=== PATIENT | male | born 1940 | race Caucasian/White ===

== ENCOUNTER → 2020-07-29 13:54 | Outpatient (CLI) | payer MEDICARE, OTHER, SELFPAY | PROVIDERS: Visit Provider Physician Assistant | DX: J02.9 Acute pharyngitis, unspecified (principal) | CPT/HCPCS: 87070 ==

== ENCOUNTER 2020-08-12 09:09 | Emergency (ER) | payer MEDICARE, OTHER, SELFPAY ==
[2020-08-12 09:20] VITALS: BP 201/84; PULSE 64; RESP 16; TEMP 36.5; O2SAT 99
--- NOTE | 2020-08-12 09:33 | DI.RAD.S_ITS ---
PROCEDURE: XR CHEST 1V INDICATIONS: chest pain TECHNIQUE: One view of the chest was acquired. COMPARISON: [facility] [place], CR, XR SHOULDER 2+ VIEWS LEFT, 07/30/2018, 9:23. FINDINGS: Surgical changes and devices: None. Lungs and pleura: On this semiupright portable chest examination, no large pneumothorax or large pleural effusions are seen. No focal infiltrates are seen. The lungs are hyperexpanded. Mediastinum: The cardiac contours are within normal limits. The aorta demonstrates calcification and tortuosity. Bones and chest wall: No suspicious bony lesions. Age-appropriate bony degenerative changes are seen. Overlying soft tissues appear unremarkable. IMPRESSION: Hyperexpanded lungs, without an acute cardiopulmonary process identified. Dictated by: Juan Carlos Lambert M.D. on 08/12/2020 at 8:59 Approved by: Juan Carlos Lambert M.D. on 08/12/2020 at 9:00
--- NOTE | 2020-08-12 09:41 | ED.CHESTPAIN ---
HPI - Chest Pain General Chief Complaint: Chest Pain Stated Complaint: reff from walk in/ongoing sharp pains breathing Time Seen by Provider: 08/12/20 09:14 Source: patient Mode of arrival: Ambulatory Limitations: no limitations History of Present Illness HPI narrative: Patient is a 79-year-old male who presents with chest discomfort ongoing for the last 3-4 days. It hurts whenever he breathes this. Last night he was sleeping on his right side in order to help with the pain. He does have pain and his left back but seems to be in the center as well. He denies any radiation of pain. It seems to be associated more with movement. He has sore throat recently which he says was quite severe he lost 10 lb from it thought he had COVID-19 but he tested negative. That seems to be improving. He can not remember what he was doing when it started. He took 650 mg of aspirin prior to arrival which he says helps. This was the 1st time he has taken anything for pain. He has not seen a doctor in about 6 years and currently takes no medication, but follows a plant based diet. MD complaint: chest pain Onset (ago): day(s) (3) Duration: intermittent Relieving factors: nothing Exacerbating factors: movement Related Data Allergies Allergy/AdvReac Type Severity Reaction Status Date / Time No Known Drug Allergies Allergy Unverified 07/29/20 09:00 Review of Systems Review of Systems Narrative: GENERAL: Denies chills, fatigue, malaise, fever, sweats, travel HEENT: Denies sinus pain, ear pain, sore throat, difficulty swallowing, neck pain RESPIRATORY: Denies dyspnea, cough, wheezing, hemoptysis, sputum. CARDIOVASCULAR: See HPI GASTROINTESTINAL: Denies nausea, vomiting, abdominal pain, diarrhea, constipation, melena. : Denies dysuria, frequency, incontinence, hematuria, urinary retention, flank pain. MUSCULOSKELETAL: Denies weakness, joint pain, or bony pain SKIN: No rash, no erythema, no pruritus NEUROLOGIC: Denies weakness, dizziness, headache, numbness, change in speech, confusion PSYCHIATRIC: No concerning psychosocial issues. 12 point review of systems is negative except for those stated above and HPI Patient History Medical History Patient denies medical problems (Acute) Sore throat (Acute) Social History Smoking Status: Never smoker Smoking Status: Never smoker Exam Initial Vital Signs Initial Vital Signs: Vital Signs Temperature 97.7 F 08/12/20 09:20 Pulse Rate 64 08/12/20 09:20 Respiratory Rate 16 08/12/20 09:20 Blood Pressure 201/84 H 08/12/20 09:20 Pulse Oximetry 99 08/12/20 09:20 GENERAL: Well-appearing, well-nourished and in no acute distress. HEENT: Head atraumatic,EOMI, pupils reactive, face symmetric, moist mucous membranes CARDIOVASCULAR: Regular rate and rhythm without murmurs, rubs or gallops. RESPIRATORY: Breath sounds equal bilaterally, no wheezes rales or rhonchi. ABDOMEN: Soft, nontender. Normoactive bowel sounds all 4 quadrants. No guarding or rebound. EXTREMITIES: Normal range of motion, no clubbing or edema. Neurovascularly intact NEUROLOGICAL: Alert and oriented x4.Normal gait and speech. SKIN: Warm, dry, no laceration, no petechiae, no rashes or lesions. Scores HEART Score Heart Score history: Slightly Suspicious Heart Score EKG: Normal Heart Score Age: > or = 65 years old Heart Score risk factors: No known risk factors Heart Score troponin: < or = to normal limit Heart Score Total: 2 Course Orders Ordered: ED Orders 08/12/20 09:19 EKG-12 Lead Routine 08/12/20 09:33 XR chest 1V Stat 08/12/20 09:37 Complete Blood Count AUTO DIFF Stat Comprehensive Metabolic Panel Stat Lipase Stat Troponin & CK Cardiac Panel Stat Vital Signs Vital signs: Vital Signs - 8 hr 08/12/20 09:20 08/12/20 09:45 08/12/20 10:00 Temperature 97.7 F Pulse Rate 64 65 64 Respiratory Rate 16 Blood Pressure 201/84 H Pulse Oximetry 99 98 98 08/12/20 10:01 08/12/20 10:56 Temperature Pulse Rate 64 64 Respiratory Rate 18 Blood Pressure 147/72 H 134/80 Pulse Oximetry 98 99 MDM - Chest Pain Lab Data Attestation: I reviewed the patient's lab results. Result diagrams: 08/12/20 09:37 08/12/20 09:37 Labs: Lab Results 08/12/20 08/12/20 Range/Units 09:37 09:37 WBC 10.7 (4.5-11.0) X10^3/uL RBC 3.75 L (4.5-5.9) X10^6/uL Hgb 11.3 L (13.5-17.5) g/dL Hct 34.3 L (41-53) % MCV 91.5 (80-100) fL MCH 30.2 (26-34) PG MCHC 33.0 (30-36) % RDW 13.2 (11.6-14.8) % Plt Count 318 (150-400) X10^3/uL Neut % (Auto) 61.8 (50-75) % Lymph % (Auto) 27.0 (25-40) % [place] % (Auto) 10.1 (3-14) % Eos % (Auto) 0.5 L (2-4) % Baso % (Auto) 0.6 (0-2) % Neut # (Auto) 6600 (8075-8358) /uL Lymph # (Auto) 2900 (9616-4716) /uL [place] # (Auto) 1100 H (0-900) /uL Eos # (Auto) 0 (0-450) /uL Baso # (Auto) 100 (0-100) /uL Sodium 135 L (137-145) mmol/L Potassium 4.4 (3.4-5.1) mmol/L Chloride 102 (98-107) mmol/L Carbon Dioxide 29 (22-32) mmol/L BUN 22 H (9-20) mg/dL Creatinine 0.79 (0.66-1.25) mg/dL Estimated GFR > 60.0 (>60) mL/min BUN/Creatinine Ratio 27.8 H (6-22) Glucose 111 H (80-110) mg/dL Calcium 9.0 (8.4-10.2) mg/dL Total Bilirubin 0.4 (0.2-1.3) mg/dL AST 22 (17-59) IU/L ALT 16 (<50) IU/L Alkaline Phosphatase 87 (38-126) U/L Total Creatine Kinase 48 L (55-170) U/L CK-MB (CK-2) TNP CK-MB (CK-2) Rel Index TNP Troponin I < 0.012 (0.01-0.034) ng/mL Total Protein 7.8 (6.3-8.2) g/dL Albumin 3.7 (3.5-5.0) g/dL Globulin 4.1 (1.7-4.1) g/dL Albumin/Globulin Ratio 0.9 L (1.0-2.8) Lipase 221 (23-300) U/L Imaging Data Chest x-ray: Radiologist's Impression: PROCEDURE: XR CHEST 1V INDICATIONS: chest pain TECHNIQUE: One view of the chest was acquired. COMPARISON: [facility] [place], CR, XR SHOULDER 2+ VIEWS LEFT, 07/30/2018, 9:23. FINDINGS: Surgical changes and devices: None. Lungs and pleura: On this semiupright portable chest examination, no large pneumothorax or large pleural effusions are seen. No focal infiltrates are seen. The lungs are hyperexpanded. Mediastinum: The cardiac contours are within normal limits. The aorta demonstrates calcification and tortuosity. Bones and chest wall: No suspicious bony lesions. Age-appropriate bony degenerative changes are seen. Overlying soft tissues appear unremarkable. IMPRESSION: Hyperexpanded lungs, without an acute cardiopulmonary process identified. Dictated by: Juan Carlos Lambert M.D. on 08/12/2020 at 8:59 Approved by: Juan Carlos Lambert M.D. on 08/12/2020 at 9:00 ECG Data Attestation: I personally reviewed and interpreted this ECG as follows: Prior ECG tracings: not available for review Interpretation: Normal sinus rhythm rate 71 p.r. interval 146 QRS [address] changes or T-wave inversions MDM Narrative Medical decision making narrative: Patient has been having pain off and on for 3-4 days. It is worse with movement and breathing it seems to be musculoskeletal. Troponin EKG chest x-ray are negative. Pain also improved after he took his to aspirin Discharge Plan Departure Patient Disposition: Home Clinical Impression: Atypical chest pain Discharge Date/Time: 08/12/20 10:56 Instructions: DI for Atypical Chest Pain Activity Restrictions/Additional Instructions: *You have been diagnosed with atypical chest *What to do: At this time blood work is overall reassuring her blood pressure has improved although it was initially elevated. Continue on your plant based journey. *Continue to take medications as directed Ibuprofen 400 mg every 6-8 hours if needed for [id number]-[id number] pain Tylenol 650 mg every 4-6 hours if needed to for [id number] pain *Follow up with your primary care provider in 2-3 days *Return to ER if you should have worsening or changing chest discomfort, shortness of breath, dizziness or lightheadedness or any new, worsening or concerning symptoms Referrals: Miscellaneous,Doctor, MD [Primary Care Provider] -
[2020-08-12 09:45] VITALS: PULSE 65; O2SAT 98
[2020-08-12 09:47] LABS: Add Manual Diff / Slide Review NO; Basophils Absolute Auto 100 /uL (0-100); Basophils Percent Auto 0.6 % (0-2); Eosinophils Absolute Auto 0 /uL (0-450); Eosinophils Percent Auto 0.5 % (2-4); Hematocrit 34.3 % (41-53); Hemoglobin 11.3 g/dL (13.5-17.5); Lymphocytes Absolute Auto 2900 /uL (1100-4500); Mean Corpuscular Hemoglobin 30.2 PG (26-34); Mean Corpuscular Volume 91.5 fL (80-100); Monocytes Absolute Auto 1100 /uL (0-900); Monocytes Percent Auto 10.1 % (3-14); Neutrophils Absolute Auto 6600 /uL (1500-7000); Neutrophils Percent Auto 61.8 % (50-75); Platelet Count 318 X10^3/uL (150-400); Red Blood Cell Count 3.75 X10^6/uL (4.5-5.9); Red Cell Distribution Width 13.2 % (11.6-14.8); White Blood Cell Count 10.7 X10^3/uL (4.5-11.0)
[2020-08-12 09:58] LABS: Alanine Aminotransferase 16 IU/L (<50); Albumin 3.7 g/dL (3.5-5.0); Albumin Globulin Ratio 0.9 (1.0-2.8); Alkaline Phosphatase 87 U/L (38-126); Aspartate Aminotransferase 22 IU/L (17-59); BUN Creatinine Ratio 27.8 (6-22); Bilirubin Total 0.4 mg/dL (0.2-1.3); Blood Urea Nitrogen 22 mg/dL (9-20); Carbon Dioxide 29 mmol/L (22-32); Chloride 102 mmol/L (98-107); Creatine Kinase 48 U/L (55-170); Estimated Glomerular Filt Rate > 60.0 mL/min (>60); Globulin 4.1 g/dL (1.7-4.1); Glucose 111 mg/dL (80-110); HEMOLYSIS < 15 (0-50); Lipase 221 U/L (23-300); Potassium 4.4 mmol/L (3.4-5.1); Sodium 135 mmol/L (137-145); Total Protein 7.8 g/dL (6.3-8.2)
[2020-08-12 10:00] VITALS: PULSE 64; O2SAT 98
[2020-08-12 10:01] VITALS: BP 147/72; PULSE 64; O2SAT 98
[2020-08-12 10:09] LABS: Troponin I < 0.012 ng/mL (0.01-0.034)
[2020-08-12 10:56] VITALS: BP 134/80; PULSE 64; RESP 18; O2SAT 99
== END 2020-08-12 10:56 | disposition home or self-care (01) ==
PROVIDERS: Emergency Provider Emergency Medicine
DX: R07.89 Other chest pain (principal); R06.00 Dyspnea, unspecified
CPT/HCPCS: 36415; 71045; 80053; 82550; 83690; 84484; 85025; 93005; 93010; 99283; 99284

== ENCOUNTER 2023-10-21 07:56 | Inpatient (IN) | payer MEDICARE, OTHER, SELFPAY ==
[2023-10-21] VITALS (29 sets, daily range): BP systolic 148–184; BP diastolic 62–86; PULSE 45–77; RESP 6–31; TEMP 36.3–37.2; O2SAT 97–100
--- NOTE | 2023-10-21 08:22 | ED.EYEPROB ---
HPI - Eye Problem General Chief complaint: Eye Problems Stated complaint: vision probelms/ headache Time Seen by Provider: 10/21/23 08:12 Source: patient Mode of arrival: Ambulatory History of Present Illness HPI Narrative: A year old male arriving by private vehicle. Patient reports blurry vision in his right eye. He notices this temporally, says he can still see things but it feels blurry. Last night at 11:00 p.m. when he went to bed things were normal. He woke up in the middle of the night with what he says is a mild headache he did not notice any visual changes at that time. Today when he awoke he noticed some lateral blurring in his right eye only. This is not accompanied by any other neurologic symptoms he still has a mild headache. He has not had nausea or vomiting he has not had any flashes or floaters he does not have eye pain. Patient says that he has a history of migraines in the past which did cause some visual changes but it was a long time ago he can not remember specifics He is previously healthy not on any regular prescription medications. He does not have a primary care provider. He does not smoke or use alcohol. Related Data Allergies Allergy/AdvReac Type Severity Reaction Status Date / Time No Known Drug Allergies Allergy Unverified 07/29/20 09:00 Patient History Medical History (Updated 10/21/23 @ 11:52 by Nick Rivas MD) Patient denies medical problems Sore throat Social History Smoking Status: Never smoker Smoking Status: Never smoker alcohol intake frequency: other Substance Use Type: does not use Exam Initial Vital Signs Initial Vital Signs: Vital Signs Temperature 97.3 F L 10/21/23 08:03 Pulse Rate 56 L 10/21/23 08:03 Respiratory Rate 18 10/21/23 08:03 Blood Pressure 174/73 H 10/21/23 08:03 Pulse Oximetry 100 10/21/23 08:03 Oxygen Delivery Method Room Air 10/21/23 08:03 Const General: No acute distress HENMT Head: normocephalic and atraumatic Eyes Other: Pupils are equal round and reactive. Extraocular movements are intact conjunctivae are normal. Neck Neck: supple Carotids: no bruits Resp Effort & Inspection: normal respiratory effort Auscultation: clear to auscultation bilaterally Cardio Other: Regular rhythm and rate no murmur or gallop Skin Other: Warm and dry Neuro Cranial Nerves: CN's II-XI intact bilaterally Speech: speech normal Gait: normal gait Motor: strength 5/5 throughout and no pronator drift Coordination: eazvnj-jn-[id number] test normal and hyhp-ir-qbqd test normal Course Orders Ordered: ED Orders 10/21/23 08:21 CT head/brain wo con Stat 10/21/23 09:15 CMP [Comprehensive Metabolic Panel] Stat Complete Blood Count AUTO DIFF Stat 10/21/23 09:16 EKG-12 Lead Stat 10/21/23 10:29 MR head/brain wo con Stat 10/21/23 11:48 CT angio head and neck Stat Discontinued Medications Aspirin (Aspirin 81 Mg Chew Tab) 324 mg PO NOW ONE Stop: 10/21/23 11:53 Last Admin: 10/21/23 12:00 Dose: 324 mg Documented By: MPO Consultations Consultation #1: D/W Dr Ross, hospitalist- requests telestroke consult Consultation #2: d/W Dr Kelly, telestroke: 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 Consultation #3: Dr Ross, hospitalist accepts admission at 14:10 Vital Signs Vital signs: Vital Signs - 8 hr 10/21/23 08:03 10/21/23 08:16 10/21/23 08:17 Temperature 97.3 F L Pulse Rate 56 L 55 L 55 L Respiratory Rate 18 20 13 Blood Pressure 174/73 H Pulse Oximetry 100 100 100 Oxygen Delivery Method Room Air 10/21/23 08:17 10/21/23 08:30 10/21/23 08:47 Temperature Pulse Rate 48 L 47 L Respiratory Rate 16 6 L Blood Pressure 184/86 H Pulse Oximetry 99 Oxygen Delivery Method 10/21/23 08:47 10/21/23 09:00 10/21/23 09:30 Temperature Pulse Rate 47 L 50 L Respiratory Rate 12 27 H Blood Pressure 156/74 H Pulse Oximetry 99 99 Oxygen Delivery Method 10/21/23 09:49 10/21/23 09:49 10/21/23 09:50 Temperature Pulse Rate 45 L 45 L Respiratory Rate Blood Pressure 161/77 H 161/77 H Pulse Oximetry 99 Oxygen Delivery Method 10/21/23 10:00 10/21/23 10:30 10/21/23 11:00 Temperature Pulse Rate 45 L 77 47 L Respiratory Rate 18 24 Blood Pressure Pulse Oximetry 98 98 99 Oxygen Delivery Method 10/21/23 11:28 10/21/23 11:28 10/21/23 11:29 Temperature Pulse Rate 51 L Respiratory Rate Blood Pressure 156/71 H 157/62 H Pulse Oximetry 98 Oxygen Delivery Method 10/21/23 11:29 10/21/23 11:30 10/21/23 11:31 Temperature Pulse Rate 51 L 51 L Respiratory Rate 31 H 28 H Blood Pressure 164/71 H Pulse Oximetry 98 98 Oxygen Delivery Method 10/21/23 11:31 10/21/23 12:08 10/21/23 12:09 Temperature Pulse Rate 46 L Respiratory Rate 27 H Blood Pressure 180/83 H Pulse Oximetry 99 98 Oxygen Delivery Method 10/21/23 12:09 10/21/23 12:11 10/21/23 12:11 Temperature Pulse Rate 69 64 Respiratory Rate Blood Pressure 163/73 H Pulse Oximetry 98 98 Oxygen Delivery Method 10/21/23 12:26 10/21/23 12:26 10/21/23 12:30 Temperature Pulse Rate 61 Respiratory Rate 13 Blood Pressure 157/71 H 156/74 H Pulse Oximetry 98 Oxygen Delivery Method 10/21/23 12:30 10/21/23 13:00 10/21/23 13:00 Temperature Pulse Rate 58 L 49 L Respiratory Rate 15 Blood Pressure 152/72 H Pulse Oximetry 99 97 Oxygen Delivery Method 10/21/23 13:30 10/21/23 13:30 10/21/23 13:59 Temperature Pulse Rate 61 Respiratory Rate 22 Blood Pressure 154/73 H Pulse Oximetry 97 98 Oxygen Delivery Method 10/21/23 14:00 Temperature Pulse Rate Respiratory Rate Blood Pressure 154/73 H Pulse Oximetry Oxygen Delivery Method MDM - Eye Problem Lab Data Lab results narrative: CBC with diff and CMP are unremarkable 10/21/23 09:15 10/21/23 09:15 Labs: Lab Results 10/21/23 Range/Units 09:15 WBC 5.1 (4.5-11.0) X10^3/uL RBC 3.83 L (4.5-5.9) X10^6/uL Hgb 12.1 L (13.5-17.5) g/dL Hct 36.0 L (41-53) % MCV 94.0 (80-100) fL MCH 31.5 (26-34) PG MCHC 33.5 (30-36) % RDW 13.4 (11.6-14.8) % Plt Count 153 (150-400) X10^3/uL Neut % (Auto) 67.9 (50-75) % Lymph % (Auto) 21.0 L (25-40) % [place] % (Auto) 7.4 (3-14) % Eos % (Auto) 3.0 (2-4) % Baso % (Auto) 0.7 (0-2) % Neut # (Auto) 3500 (0058-3197) /uL Lymph # (Auto) 1100 (3284-3252) /uL [place] # (Auto) 400 (0-900) /uL Eos # (Auto) 200 (0-450) /uL Baso # (Auto) 0 (0-100) /uL Sodium 137 (137-145) mmol/L Potassium 4.3 (3.4-5.1) mmol/L Chloride 105 (98-107) mmol/L Carbon Dioxide 25 (22-32) mmol/L BUN 22 H (9-20) mg/dL Creatinine 0.75 (0.66-1.25) mg/dL Estimated GFR > 60 (>60) mL/min BUN/Creatinine Ratio 29.3 H (6-22) Glucose 117 H (80-110) mg/dL Calcium 8.8 (8.4-10.2) mg/dL Total Bilirubin 0.5 (0.2-1.3) mg/dL AST 33 (17-59) IU/L ALT 20 (<50) IU/L Alkaline Phosphatase 155 H (38-126) U/L Total Protein 6.9 (6.3-8.2) g/dL Albumin 3.8 (3.5-5.0) g/dL Globulin 3.1 (1.7-4.1) g/dL Albumin/Globulin Ratio 1.2 (1.0-2.8) Imaging Data CT scan - head: My Impression: My initial review, no hemorrhage or mass, Radiologist's Impression: PROCEDURE: CT HEAD/BRAIN WO CON INDICATIONS: visual changes and WILEY TECHNIQUE: Noncontrast 4.5 mm thick angled axial sections acquired from the foramen magnum to the vertex, with coronal and sagittal reformats. For radiation dose reduction, the following was used: automated exposure control, adjustment of mA and/or kV according to patient size. COMPARISON: None. FINDINGS: Image quality: Diagnostic. CSF spaces: Basal cisterns are patent. No extra-axial fluid collections. The ventricles are symmetric in size and shape. Brain: No intracranial bleeds or masses. There is cerebral volume loss for age, with resultant ventricular and sulcal prominence. There are periventricular and deep white matter chronic small vessel ischemic changes. There is intracranial internal carotid artery atherosclerosis. Ill-defined low-attenuation is present in the left parietal occipital lobe. Skull and face: Calvarium and visualized facial bones appear intact, without suspicious lesions. Sinuses: Mucosal thickening is present within the left maxillary sinus. IMPRESSION: Low-attenuation in the left parietal occipital lobe suspicious for subacute ischemia. MRI brain may be obtained for further evaluation as clinically indicated. Moderate atrophy and chronic microvascular ischemic changes. Dictated by: Halie Jiménez M.D. on 10/21/2023 at 8:41 Approved by: Halie Jiménez M.D. on 10/21/2023 at 8:42 mri brain: Radiologist's Impression: [place] [id number] Magnetic Resonance Report Signed Patient: Roel West MR#: [id number] : 1940 Acct:[id number] Age/Sex: 82 / M Date of Service: 10/21/23 Loc: ED Accession Number: [id number] Procedure: MR head/brain wo con Ordering Provider: Nick Rivas MD PROCEDURE: MR HEAD/BRAIN WO CON INDICATIONS: visual changes, possible cva on CT TECHNIQUE: Non-contrast axial T1 spin echo, axial T2 fast spin echo, sagittal and axial FLAIR, coronal T2 fast spin echo, axial gradient echo, axial diffusion and ADC through the brain. COMPARISON: [facility], CT, CT HEAD/BRAIN WO CON, 10/21/2023, 8:36. FINDINGS: Image quality: Diagnostic, with note made of motion artifact. CSF spaces: Ventricles appear symmetric in size and shape. Basal cisterns are patent. No extra-axial fluid collections. Brain: Multiple areas of abnormal diffusion-weighted signal can be seen, which is worst within the left CALIBRATION TECHNICIAN territory. Additional smaller areas of abnormal diffusion-weighted signal can be seen within both MCA territories as well as within the right CALIBRATION TECHNICIAN territory. There are additional areas of abnormal diffusion-weighted signal seen within right cerebellar hemisphere. There is associated abnormal dark signal seen on the ADC maps. No intracranial bleeds or mass effects. There is cerebral volume loss for age. There are periventricular and deep white matter chronic small vessel ischemic changes. Brainstem appears normal. No chronic ischemic insults. Normal intravascular flow voids are present. Relatively prominent perivascular spaces are noted. Skull and face: Calvarial bone marrow is normal in signal. Orbits are normal. Sinuses: Mucous retention cysts can be seen within the inferior aspect of the left maxillary sinus. Minimal mucosal thickening can be seen within the ethmoid air cells. IMPRESSION: Multiple areas of subacute infarction can be seen, which is overall worst within the left CALIBRATION TECHNICIAN territory. 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 Dictated by: Juan Carlos Lambert M.D. on 10/21/2023 at 10:36 Approved by: Juan Carlos Lambert M.D. on 10/21/2023 at 10:39 CTA - brain/neck: Radiologist's Impression: PROCEDURE: CT ANGIO HEAD AND NECK INDICATIONS: cva TECHNIQUE: After the administration of intravenous contrast, 1 mm thick sections acquired from the aortic arch through the [place] of [place]. 3-dimensional xfdcezh-fmiwhcfca-lttchrcyan (MIP) and/or volume rendering reformats were acquired of the central intracranial vasculature and neck separately. For radiation dose reduction, the following was used: automated exposure control, adjustment of mA and/or kV according to patient size. COMPARISON: [facility], MR, MR HEAD/BRAIN WO CON, 10/21/2023, 11:04. FINDINGS: Image quality: Diagnostic. BRAIN: CSF spaces: Ventricles are normal in size and shape. Basal cisterns are patent. No extra-axial fluid collections. Brain: Late acute infarct changes of the left CALIBRATION TECHNICIAN territory, with mild loss of escalera-white matter differentiation.. Skull and face: Calvarium and facial bones appear intact, without suspicious lesions. Orbits appear normal. Sinuses: Sinuses and mastoids are clear. HEAD CT ANGIOGRAPHY: Anterior circulation: Intracranial internal carotid arteries are normal in size and flow. The flow within the paired anterior cerebral arteries is normal and symmetric. The flow within the middle cerebral arteries is normal and symmetric. The anterior communicating artery is seen. No aneurysms are seen. Posterior circulation: Visualized portions of the vertebral arteries demonstrate normal caliber, and join to form a normal appearing basilar artery. Flow within the posterior cerebral arteries is normal and symmetric. No aneurysms are seen. NECK CT ANGIOGRAPHY: Carotid system: The great vessels demonstrate a conventional anatomy as they arise from the aortic arch. The origins of the common carotid arteries appear patent. The common carotid arteries demonstrate normal caliber and courses. The bifurcation regions are both widely patent. The internal carotid arteries demonstrate normal calibers and courses. Posterior circulation: The origins of the vertebral arteries both appear widely patent. The more superior extracranial portions of both vertebral arteries also demonstrate normal courses and calibers. They join to form a normal appearing basilar artery. Soft tissues: Visualized neck soft tissues demonstrate no suspicious abnormalities. Bones: No suspicious bony lesions. Visualized cervical spine appears normally aligned. IMPRESSION: No significant intracranial arterial abnormality is seen. No significant abnormality is seen within the arteries of the neck. Late acute to subacute infarct changes of the left CALIBRATION TECHNICIAN territory. Any quantitative measurements of stenosis were performed using NASCET criteria. Dictated by: Niraj Gomez M.D. on 10/21/2023 at 12:47 Approved by: Niraj Gomez M.D. on 10/21/2023 at 12:50 Chest x-ray: My Impression: Initial review, no acute disease Radiologist's Impression: Radiology reports no acute disease ECG Data Interpretation: EKG shows sinus bradycardia [address] segment changes normal intervals MDM Narrative Medical decision making narrative: 82-year-old male complaining of right-sided visual blurring. Last no normal was close to 12 hours prior to being seen, as only visual changes without other neurologic complaints or findings on exam. Stroke was considered and felt unlikely, owing to the localization of symptoms to the right eye. Nonetheless imaging was obtained, noncontrast head CT was concerning for the presence of a stroke, this was verified on MRI and he had subsequent CT angio of the head and neck that does not show any large vessel occlusion or stenosis. Multiple areas of infarct or suggestive of embolic event. Case was discussed with [facility], he was given aspirin 325 mg p.o. he will be admitted to the hospitalist service. Discharge Plan Departure Patient Disposition: Admitted As Inpatient Clinical Impression: Acute CVA (cerebrovascular accident)
--- NOTE | 2023-10-21 08:51 | PC.NURSE ---
Pt came to the emergency dept today because woke up yesterday with a dull aching headache. Pt c/o blurry vision in his right eye and a pressure that is coming from behind his right eye that he rates as 2\10 pain at this time. Pt denies any dizziness, n/v, sob, cp. Pt HR 45 sinus yumiko and pt states that is not normal for him and that his HR is normally in the 60s and 70s. Pt denies taking any medication prior to arrival and he does not take any daily medications. pt a&ox4. Dr Rivas notified. Verbal orders cbc, cmp and peripheral IV.
[2023-10-21 09:21] LABS: Add Manual Diff / Slide Review NO; Basophils Absolute Auto 0 /uL (0-100); Basophils Percent Auto 0.7 % (0-2); Eosinophils Absolute Auto 200 /uL (0-450); Hemoglobin 12.1 g/dL (13.5-17.5); Lymphocytes Absolute Auto 1100 /uL (1100-4500); Mean Corpuscular HGB Conc 33.5 % (30-36); Mean Corpuscular Hemoglobin 31.5 PG (26-34); Monocytes Absolute Auto 400 /uL (0-900); Monocytes Percent Auto 7.4 % (3-14); Neutrophils Absolute Auto 3500 /uL (1500-7000); Neutrophils Percent Auto 67.9 % (50-75); Platelet Count 153 X10^3/uL (150-400); Red Blood Cell Count 3.83 X10^6/uL (4.5-5.9); Red Cell Distribution Width 13.4 % (11.6-14.8); White Blood Cell Count 5.1 X10^3/uL (4.5-11.0)
[2023-10-21 09:35] LABS: Alanine Aminotransferase 20 IU/L (<50); Albumin 3.8 g/dL (3.5-5.0); Albumin Globulin Ratio 1.2 (1.0-2.8); Alkaline Phosphatase 155 U/L (38-126); Aspartate Aminotransferase 33 IU/L (17-59); BUN Creatinine Ratio 29.3 (6-22); Bilirubin Total 0.5 mg/dL (0.2-1.3); Blood Urea Nitrogen 22 mg/dL (9-20); Calcium 8.8 mg/dL (8.4-10.2); Carbon Dioxide 25 mmol/L (22-32); Chloride 105 mmol/L (98-107); Estimated Glomerular Filt Rate > 60 mL/min (>60); Globulin 3.1 g/dL (1.7-4.1); Glucose 117 mg/dL (80-110); HEMOLYSIS < 15 (0-50); Potassium 4.3 mmol/L (3.4-5.1); Sodium 137 mmol/L (137-145); Total Protein 6.9 g/dL (6.3-8.2)
--- NOTE | 2023-10-21 09:51 | PC.NURSE ---
Pt resting comfortable in bed. states that his WILEY remains at 2/10 pain. Pt continues to deny any sob, n/v, cp or dizziness. Pt HR 45
--- NOTE | 2023-10-21 10:29 | DI.MRI.S_ITS ---
PROCEDURE: MR HEAD/BRAIN WO CON INDICATIONS: visual changes, possible cva on CT TECHNIQUE: Non-contrast axial T1 spin echo, axial T2 fast spin echo, sagittal and axial FLAIR, coronal T2 fast spin echo, axial gradient echo, axial diffusion and ADC through the brain. COMPARISON: [facility], CT, CT HEAD/BRAIN WO CON, 10/21/2023, 8:36. FINDINGS: Image quality: Diagnostic, with note made of motion artifact. CSF spaces: Ventricles appear symmetric in size and shape. Basal cisterns are patent. No extra-axial fluid collections. Brain: Multiple areas of abnormal diffusion-weighted signal can be seen, which is worst within the left RADAR SCIENTIST territory. Additional smaller areas of abnormal diffusion-weighted signal can be seen within both MCA territories as well as within the right RADAR SCIENTIST territory. There are additional areas of abnormal diffusion-weighted signal seen within right cerebellar hemisphere. There is associated abnormal dark signal seen on the ADC maps. No intracranial bleeds or mass effects. There is cerebral volume loss for age. There are periventricular and deep white matter chronic small vessel ischemic changes. Brainstem appears normal. No chronic ischemic insults. Normal intravascular flow voids are present. Relatively prominent perivascular spaces are noted. Skull and face: Calvarial bone marrow is normal in signal. Orbits are normal. Sinuses: Mucous retention cysts can be seen within the inferior aspect of the left maxillary sinus. Minimal mucosal thickening can be seen within the ethmoid air cells. IMPRESSION: Multiple areas of subacute infarction can be seen, which is overall worst within the left RADAR SCIENTIST territory. 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 Dictated by: Juan Carlos Lambert M.D. on 10/21/2023 at 10:36 Approved by: Juan Carlos Lambert M.D. on 10/21/2023 at 10:39
--- NOTE | 2023-10-21 11:33 | PC.NURSE ---
Pt returned from MRI and hooked up to gambling monitor. Pt states that he has pressure behind his eyes that he rates as a 2/10. a&ox4 and answers all questions appropriately.
--- NOTE | 2023-10-21 11:48 | DI.CT.S_ITS ---
PROCEDURE: CT ANGIO HEAD AND NECK INDICATIONS: cva TECHNIQUE: After the administration of intravenous contrast, 1 mm thick sections acquired from the aortic arch through the [place] of [place]. 3-dimensional spwvglm-bcmqiuumw-ekwtecymlc (MIP) and/or volume rendering reformats were acquired of the central intracranial vasculature and neck separately. For radiation dose reduction, the following was used: automated exposure control, adjustment of mA and/or kV according to patient size. COMPARISON: [facility], MR, MR HEAD/BRAIN WO CON, 10/21/2023, 11:04. FINDINGS: Image quality: Diagnostic. BRAIN: CSF spaces: Ventricles are normal in size and shape. Basal cisterns are patent. No extra-axial fluid collections. Brain: Late acute infarct changes of the left RETAIL ANALYST territory, with mild loss of escalera-white matter differentiation.. Skull and face: Calvarium and facial bones appear intact, without suspicious lesions. Orbits appear normal. Sinuses: Sinuses and mastoids are clear. HEAD CT ANGIOGRAPHY: Anterior circulation: Intracranial internal carotid arteries are normal in size and flow. The flow within the paired anterior cerebral arteries is normal and symmetric. The flow within the middle cerebral arteries is normal and symmetric. The anterior communicating artery is seen. No aneurysms are seen. Posterior circulation: Visualized portions of the vertebral arteries demonstrate normal caliber, and join to form a normal appearing basilar artery. Flow within the posterior cerebral arteries is normal and symmetric. No aneurysms are seen. NECK CT ANGIOGRAPHY: Carotid system: The great vessels demonstrate a conventional anatomy as they arise from the aortic arch. The origins of the common carotid arteries appear patent. The common carotid arteries demonstrate normal caliber and courses. The bifurcation regions are both widely patent. The internal carotid arteries demonstrate normal calibers and courses. Posterior circulation: The origins of the vertebral arteries both appear widely patent. The more superior extracranial portions of both vertebral arteries also demonstrate normal courses and calibers. They join to form a normal appearing basilar artery. Soft tissues: Visualized neck soft tissues demonstrate no suspicious abnormalities. Bones: No suspicious bony lesions. Visualized cervical spine appears normally aligned. IMPRESSION: No significant intracranial arterial abnormality is seen. No significant abnormality is seen within the arteries of the neck. Late acute to subacute infarct changes of the left RETAIL ANALYST territory. Any quantitative measurements of stenosis were performed using NASCET criteria. Dictated by: Niraj Gomez M.D. on 10/21/2023 at 12:47 Approved by: Niraj Gomez M.D. on 10/21/2023 at 12:50
[2023-10-21] MEDS: ASPIRIN 81 MG CHEW TAB 324 MG PO (12:00)
--- NOTE | 2023-10-21 14:42 | P.HP_ITS ---
History of Present Illness History of Present Illness Date Patient Seen: 10/21/23 Chief complaint: vision probelms/ headache Narrative: Roel West is an 82yo M with no significant medical history who doesn't take medications who presents with visual deficits and headache. Patient states he was reading in bed until 10pm last night and felt normal. He then awoke this morning with a headache which he never gets and blurry vision in his right eye. He had trouble reading the paper in the morning due to this so came to the ED. He lives on [facility]. In the ED patient found to have subacute L infarcts. He then left AMA from the ED because he thought his house was flooding. But then [place] ferry so came back to the ED. He is strictly whole food and plant based with his diet, which has been for several years. He says his strict diet has allowed him to lose 45lbs and improved swelling in his feet and pain in his knees. He will not take any statins, saying they are 1.5% effective. He denies any facial droop, weakness in his arms or legs or balance/gait disturbance. [facility] Medical History (Updated 10/21/23 @ 11:52 by Nick Rivas MD) Patient denies medical problems Sore throat Social History household members: none Smoking Status: Never smoker Meds Home Medications and Allergies Home Medications Medication Instructions Recorded Confirmed Type mecobalamin (vitamin B12) 5,000 5,000 mcg PO WEEKLY 10/22/23 10/22/23 History mcg chewable tablet Allergies Allergy/AdvReac Type Severity Reaction Status Date / Time No Known Drug Allergies Allergy Unverified 07/29/20 09:00 Review of Systems Review of Systems Narrative: All other systems reviewed with the patient and are negative unless otherwise stated. Exam Vital Signs (past 8 hours): - 10/21/23 08:03 10/21/23 08:16 10/21/23 08:17 Temperature 97.3 F L Pulse Rate 56 L 55 L 55 L Respiratory Rate 18 20 13 Blood Pressure 174/73 H Pulse Oximetry 100 100 100 Oxygen Delivery Method Room Air 10/21/23 08:17 10/21/23 08:30 10/21/23 08:47 Temperature Pulse Rate 48 L 47 L Respiratory Rate 16 6 L Blood Pressure 184/86 H Pulse Oximetry 99 Oxygen Delivery Method 10/21/23 08:47 10/21/23 09:00 10/21/23 09:30 Temperature Pulse Rate 47 L 50 L Respiratory Rate 12 27 H Blood Pressure 156/74 H Pulse Oximetry 99 99 Oxygen Delivery Method 10/21/23 09:49 10/21/23 09:49 10/21/23 09:50 Temperature Pulse Rate 45 L 45 L Respiratory Rate Blood Pressure 161/77 H 161/77 H Pulse Oximetry 99 Oxygen Delivery Method 10/21/23 10:00 10/21/23 10:30 10/21/23 11:00 Temperature Pulse Rate 45 L 77 47 L Respiratory Rate 18 24 Blood Pressure Pulse Oximetry 98 98 99 Oxygen Delivery Method 10/21/23 11:28 10/21/23 11:28 10/21/23 11:29 Temperature Pulse Rate 51 L Respiratory Rate Blood Pressure 156/71 H 157/62 H Pulse Oximetry 98 Oxygen Delivery Method 10/21/23 11:29 10/21/23 11:30 10/21/23 11:31 Temperature Pulse Rate 51 L 51 L Respiratory Rate 31 H 28 H Blood Pressure 164/71 H Pulse Oximetry 98 98 Oxygen Delivery Method 10/21/23 11:31 10/21/23 12:08 10/21/23 12:09 Temperature Pulse Rate 46 L Respiratory Rate 27 H Blood Pressure 180/83 H Pulse Oximetry 99 98 Oxygen Delivery Method 10/21/23 12:09 10/21/23 12:11 10/21/23 12:11 Temperature Pulse Rate 69 64 Respiratory Rate Blood Pressure 163/73 H Pulse Oximetry 98 98 Oxygen Delivery Method 10/21/23 12:26 10/21/23 12:26 10/21/23 12:30 Temperature Pulse Rate 61 Respiratory Rate 13 Blood Pressure 157/71 H 156/74 H Pulse Oximetry 98 Oxygen Delivery Method 10/21/23 12:30 10/21/23 13:00 10/21/23 13:00 Temperature Pulse Rate 58 L 49 L Respiratory Rate 15 Blood Pressure 152/72 H Pulse Oximetry 99 97 Oxygen Delivery Method 10/21/23 13:30 10/21/23 13:30 10/21/23 13:59 Temperature Pulse Rate 61 Respiratory Rate 22 Blood Pressure 154/73 H Pulse Oximetry 97 98 Oxygen Delivery Method 10/21/23 14:00 Temperature Pulse Rate Respiratory Rate Blood Pressure 154/73 H Pulse Oximetry Oxygen Delivery Method Oxygen Delivery Method Room Air Narrative Exam Narrative: GEN: no acute distress HEENT: moist mucous membranes, PERRL NECK: trachea midline, no JVD CV: regular rate and rhythm, no murmurs PULM: clear bilaterally ABD: soft, nontender, nondistended, no organomegaly EXT: warm and well perfused with no edema NEURO: awake, alert, oriented, R eye with lateral visual deficit Objective Labs 10/22/23 05:55 10/22/23 05:55 Labs: Laboratory Results - last 24 hr 10/21/23 09:15 WBC 5.1 RBC 3.83 L Hgb 12.1 L Hct 36.0 L MCV 94.0 MCH 31.5 MCHC 33.5 RDW 13.4 Plt Count 153 Neut % (Auto) 67.9 Lymph % (Auto) 21.0 L Lee % (Auto) 7.4 Eos % (Auto) 3.0 Baso % (Auto) 0.7 Neut # (Auto) 3500 Lymph # (Auto) 1100 Lee # (Auto) 400 Eos # (Auto) 200 Baso # (Auto) 0 Sodium 137 Potassium 4.3 Chloride 105 Carbon Dioxide 25 BUN 22 H Creatinine 0.75 Estimated GFR > 60 BUN/Creatinine Ratio 29.3 H Glucose 117 H Calcium 8.8 Total Bilirubin 0.5 AST 33 ALT 20 Alkaline Phosphatase 155 H Total Protein 6.9 Albumin 3.8 Globulin 3.1 Albumin/Globulin Ratio 1.2 Assessment & Plan Assessment & Plan narrative: # multifocal subacute strokes -patient presented with R eye hemianopsia -MRI brain with multiple strokes of L GRADER GREEN MEAT territory, likely embolic source -CTA without GREGORY -telestroke rec 81mg ASA daily alone -LDL 101, but patient refuses statins -A1c normal -echo ordered -tele -labetalol IV PRN for 24 hours Code status is full code. DVT prophylaxis with Lovenox. Proxy is Lenin. I have reviewed home meds and used all available resources to reconcile the home meds. Case discussed with ED physician/APC and patient will be admitted to the hospitalist service for further workup and management. This patient will be admitted as inpatient and will require greater than 2 midnights of hospital time to treat subacute strokes.
--- NOTE | 2023-10-21 16:26 | PC.NURSE ---
Pt left A,shortly after leaving he decided that that wasn't a good decision and returned for admission
--- NOTE | 2023-10-21 17:59 | PC.NURSE ---
Patient arrived to Room 217 this evening at 1720 this evening A&Ox4, ambulatory on RA. VSS. He denies pain. He denies neuro deficits and blurriness to R eye vision has resolved. He denies WILEY, SOB, CP, dizziness, palpitations , n/v. At baseline slightly unsteady gait but denies any recent falls. He is oriented to room, unit routine and placed on telemetry. Per dietary request, he is vegan and does not eat meat, dairy or oil. He is able to order dinner this evening with dietary. Continuous monitoring. Plan for Echo in a.m. and PT/OT consult.
[2023-10-21 18:25] LABS: Hemoglobin A1C% w Est Avg Glu 5.4 % (4.0-6.0)
[2023-10-21 18:31] LABS: Magnesium 2.1 mg/dL (1.6-2.3)
[2023-10-21 18:32] LABS: Cholesterol 160 mg/dL (140-199); HDL Cholesterol 48 mg/dL (40-60); LDL Cholesterol Calculated 101 mg/dL (<100); Triglycerides 56 mg/dL (35-150)
[2023-10-21 19:02] LABS: TSH w/ Reflex to FT4 1.45 uIU/mL (0.47-4.68)
[2023-10-21] MEDS: SODIUM CHLORIDE 0.9% FLUSH 10 ML IV (21:19)
--- NOTE | 2023-10-22 00:40 | PC.NURSE ---
Patient is alert and oriented; NIH = 0. Breath sounds CTA with RA sat of 98%. HRR but intermittently bradycardic with rate down into 40's. BP elevated at 149/72 but just rechecked and was 122/60. Denied nausea. BT present and abdomen is soft. Voiding without dysuria. Is able to move himself in bed and gets out of bed with staff oversight; denied dizziness or lightheadedness. Did complain of a 1-2/10 headache but declined intervention. Bilateral calf SCD's applied and is tolerating them fair. Fall risk score is low but patient verbalizes understanding to call for assist when getting up.
[2023-10-22 00:41] VITALS: BP 122/60; PULSE 52; RESP 16; TEMP 37.2; O2SAT 97
[2023-10-22 04:55] VITALS: BP 122/71; PULSE 57; RESP 16; TEMP 37.4; O2SAT 97
[2023-10-22 06:56] LABS: Add Manual Diff / Slide Review NO; Basophils Absolute Auto 0 /uL (0-100); Basophils Percent Auto 0.4 % (0-2); Eosinophils Absolute Auto 100 /uL (0-450); Eosinophils Percent Auto 0.8 % (2-4); Hemoglobin 11.2 g/dL (13.5-17.5); Lymphocytes Absolute Auto 900 /uL (1100-4500); Lymphocytes Percent Auto 12.4 % (25-40); Mean Corpuscular Hemoglobin 31.6 PG (26-34); Monocytes Absolute Auto 400 /uL (0-900); Monocytes Percent Auto 5.5 % (3-14); Neutrophils Absolute Auto 5600 /uL (1500-7000); Neutrophils Percent Auto 80.9 % (50-75); Platelet Count 134 X10^3/uL (150-400); Red Blood Cell Count 3.55 X10^6/uL (4.5-5.9); Red Cell Distribution Width 13.2 % (11.6-14.8); White Blood Cell Count 6.9 X10^3/uL (4.5-11.0)
[2023-10-22 07:09] LABS: BUN Creatinine Ratio 27.3 (6-22); Blood Urea Nitrogen 18 mg/dL (9-20); Calcium 8.7 mg/dL (8.4-10.2); Carbon Dioxide 25 mmol/L (22-32); Chloride 101 mmol/L (98-107); Estimated Glomerular Filt Rate > 60 mL/min (>60); Glucose 102 mg/dL (80-110); HEMOLYSIS < 15 (0-50); Potassium 4.3 mmol/L (3.4-5.1); Sodium 129 mmol/L (137-145)
[2023-10-22 08:00] VITALS: BP 120/58; PULSE 56; RESP 16; TEMP 36.6; O2SAT 97
--- NOTE | 2023-10-22 08:53 | CM.DANOTE ---
Initial DCP Assessment Note Pt is an 82 yo male, resident of [facility], presents to the ER with blurry vision and headache. Patient found to have multifocal subacute strokes. echo and therapies pending today. PCP: Unknown Payer: KAYDEN/Rina Reviewed chart, met w/patient to introduce self and role. Patient up washing his hands at the sink, moves independently in room. Patient is independent and very active in all aspects. 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 Patient has a friend that could like get him home upon discharge. No barriers identified at this time to patient's safe discharge home ; close outpatient f/u recommended. CM team will plan to follow closely in case any DC needs or concerns arise. MO Sosa Discharge Planning/Care Management Discharge Assessment Start: 10/22/23 08:45 Freq: Status: Active Protocol: Document 10/22/23 08:45 MAURILIO (Rec: 10/22/23 08:52 MAURILIO [id number]) Discharge Planning Assessment Assigned Drum Filler [place] DPOA/Assigned Designee Name Lenin Riosnancy Contact Information [phone] Advance Directives? No History Provided By Patient,Medical Record Prior Living Arrangements House Household Members none Type of transportation used prior to Drives own vehicle admit Independent with ADL's Yes Is patient alert and oriented? Yes Barriers to Discharge No Comment Home expected, close outpatient follow up Discharge Plan Home Transportation Arrangement Likely friend vs taxi to the [facility] Referrals Initiated None needed
[2023-10-22] MEDS: ASPIRIN EC 81 MG TABLET PO (09:32)
[2023-10-22] MEDS: ENOXAPARIN 40 MG/0.4 ML SYRINGE SUBCUT (09:32)
[2023-10-22] MEDS: SODIUM CHLORIDE 0.9% FLUSH 10 ML IV (09:33)
--- NOTE | 2023-10-22 09:55 | DI.ECHO.S_ITS ---
Version: 1 Study ID: [id number] 2023 [place] [address] Name: MAVERICK CASTELAN Study Date: 10/22/2023, 9: 55 AM : 1940 BP: 120 / 58 mmHg Gender: Male Height: 68 in Age: 82 Years Weight: 132 lb BSA: 1.71 m?? Referring: BOAZ GARCIA Clinician: Roderick England Reason For Study: EMBOLIC STROKE History: Summary Statements Normal sinus rhythm with occasional PAC's. Normal LV size and wall thickness; normal wall motion and LV systolic function. EF is 60-65%. Stage I diastolic dysfunction. Severe LA enlargement and mild RA enlargement. Borderline RV enlargement. No significant valvular abnormalities. There is a PFO associated with bubbles crossing from right to left. No prior study available for comparison. Procedure: A two-dimensional transthoracic echocardiogram with color flow and Doppler was performed. The study quality was technically good. There is no prior echocardiogram noted for this patient. The patient was in normal sinus rhythm during the exam. The patient had frequent PACs during the exam. Left Ventricle: The left ventricle is normal in size. There is normal left ventricular wall thickness. The ejection fraction is estimated to be 60-65%. There are no focal wall motion abnormalities. Right Ventricle: The right ventricle is borderline dilated. The right ventricular systolic function is normal. Atria: The left atrium is severely dilated. The right atrium is mildly dilated. Injection of contrast with valsalva documented an interatrial shunt. Mitral Valve: There is mild mitral annular calcification. There is mild to moderate mitral regurgitation. Aortic Valve: The aortic valve is trileaflet. The aortic valve is slightly calcified. The aortic valve opens well. There is trace aortic regurgitation. Tricuspid Valve: The tricuspid valve is normal in structure and function. There is trace tricuspid regurgitation. The right ventricular systolic pressure is estimated to be at least 21 mmHg based on an estimated right atrial pressure of 3 mm Hg. Pulmonic Valve: The pulmonic valve is not well seen, but is grossly normal. There is trace pulmonic regurgitation. Great Vessels: The aortic root is normal size. The dimensions of the ascending aorta are normal. The pulmonary artery is normal size. The IVC is of normal diameter and collapses greater than 50% with a sniff. This suggests a low right atrial pressure of 3 mm Hg. Pericardium/ Pleura: There is no pericardial effusion. There is no pleural effusion. 2D and M-Mode Measurements and Calculations LVIDd: 4.8 cm AoV Openin.45 cm LVIDs: 2.7 cm LVOT diam: 1.95 cm IVSd: 0.96 cm Ao root diam: 3.4 cm LVPWd: 0.80 cm asc Aorta Diam: 3.4 cm LV rasmussen. diameter/BSA (cm/m^2): 2.8 LV sys. diameter/BSA (cm/m^2): 1.59 EPSS: 0.55 cm RVD1 (basal): 4.2 cm RVD2 (mid): 4.1 cm TAPSE: 2.8 cm LA A4 area: 25.4 cm?? IVC diam: 1.81 cm LA A2 area: 25.0 cm?? RA area: 22.0 cm?? LA length (vol): 5.8 cm RA long axis: 5.2 cm LA vol: 93.3 ml RA vol: 78.4 ml LA vol index: 54.5 ml/m?? RA : 45.7 ml/m?? Doppler Measurements and Calculations Ao V2 max: 188.0 cm/sec LVOT Max Iraj: 115.0 cm/sec Ao V2 mean: 141.0 cm/sec LV V1 max P.3 mmHg Ao V2 VTI: 42.9 cm LV V1 VTI: 24.1 cm Ao max P.1 mmHg SV(LVOT): 72.0 ml Ao mean P.8 mmHg HEATH(I,D): 1.68 cm?? HEATH(V,D): 1.83 cm?? HEATH indexed to BSA (cm^2/m^2): 0.98 sev ratio: 0.56 MV E max iraj: 76.5 cm/sec MV dec time: 0.28 sec MV A max iraj: 90.9 cm/sec MV E/A: 0.84 Med Peak E' Iraj: 6.0 cm/sec Lat Peak E' Iraj: 7.8 cm/sec E/e' average: 11.3 TR max iraj: 213.7 cm/sec PA mean P.8 mmHg TR max P.3 mmHg PA V2 max: 111.9 cm/brandi GASTON: 1.39 cm?? Electronically signed by: Lacy Gaspar M.D. 10/22/2023, 11: 28 AM
[2023-10-22 12:00] VITALS: BP 119/61; PULSE 56; RESP 14; O2SAT 98
--- NOTE | 2023-10-22 13:16 | PM.DS.1 ---
History of Present Illness History of Present Illness Chief complaint: vision probelms/ headache Narrative: Roel West is an 82yo M with no significant medical history who doesn't take medications who presents with visual deficits and headache. Patient states he was reading in bed until 10pm last night and felt normal. He then awoke this morning with a headache which he never gets and blurry vision in his right eye. He had trouble reading the paper in the morning due to this so came to the ED. He lives on [facility]. In the ED patient found to have subacute L infarcts. He then left AMA from the ED because he thought his house was flooding. But then he missed the last ferry so came back to the ED. He is strictly whole food and plant based with his diet, which has been for several years. He says his strict diet has allowed him to lose 45lbs and improved swelling in his feet and pain in his knees. He will not take any statins, saying they are 1.5% effective. He denies any facial droop, weakness in his arms or legs or balance/gait disturbance. Discharge Providers Provider Date of admission: 10/21/23 17:09 Discharge Date: 10/22/23 Primary care physician: Doctor Go, Discharge provider: Asim Ross DO Summary Hospital Course Discharge Diagnosis: # multifocal subacute strokes, likely cryptogenic -patient presented with R eye hemianopsia after he woke up in the morning with it -MRI brain with multiple strokes of L SALESFORCE SPECIALIST territory, likely embolic source -CTA without carotid stenosis -telestroke rec 81mg ASA daily alone -LDL 101, but patient refuses statins -A1c normal -echo ordered, shows PFO -urgent outpatient cardiology referral sent to [facility] with Dr. Fregoso to discuss PFO closure -no evidence of A-fib on tele Hospital Course: Admitted for new R eye blurry vision. Patient went to bed normally then awoke with it. MRI showed likely embolic strokes of L SALESFORCE SPECIALIST area. Echo showed PFO which is likely the source. Urgent cardiology referral placed to discuss PFO closure. Placed on aspirin 81mg daily. LDL 101 but patient refused statin. A1c normal. Exam Vital Signs (past 8 hours): - 10/22/23 08:00 10/22/23 09:00 10/22/23 12:00 Temperature 97.8 F Pulse Rate 56 L 56 L Respiratory Rate 16 14 Blood Pressure 120/58 L 119/61 Pulse Oximetry 97 98 Oxygen Delivery Method Room Air Oxygen Delivery Method Room Air Oxygen Flow Rate 0 Narrative Exam Narrative: GEN: no acute distress HEENT: moist mucous membranes, PERRL NECK: trachea midline, no JVD CV: regular rate and rhythm, no murmurs PULM: clear bilaterally ABD: soft, nontender, nondistended, no organomegaly EXT: warm and well perfused with no edema NEURO: awake, alert, oriented, R eye with lateral visual deficit Objective Labs 10/22/23 05:55 10/22/23 05:55 Labs: Laboratory Results - last 24 hr 10/21/23 10/22/23 17:58 05:55 WBC 6.9 RBC 3.55 L Hgb 11.2 L Hct 33.0 L MCV 93.0 MCH 31.6 MCHC 34.0 RDW 13.2 Plt Count 134 L Neut % (Auto) 80.9 H Lymph % (Auto) 12.4 L [place] % (Auto) 5.5 Eos % (Auto) 0.8 L Baso % (Auto) 0.4 Neut # (Auto) 5600 Lymph # (Auto) 900 L [place] # (Auto) 400 Eos # (Auto) 100 Baso # (Auto) 0 Sodium 129 L Potassium 4.3 Chloride 101 Carbon Dioxide 25 BUN 18 Creatinine 0.66 Estimated GFR > 60 BUN/Creatinine Ratio 27.3 H Glucose 102 Hemoglobin A1c 5.4 Calcium 8.7 Magnesium 2.1 Triglycerides 56 Cholesterol 160 LDL Cholesterol, Calc 101 H HDL Cholesterol 48 TSH 1.45 [facility] Medical History (Updated 10/21/23 @ 11:52 by Nick Rivas MD) Patient denies medical problems Sore throat Social History household members: none Smoking Status: Never smoker Discharge Plan Discharge Plan Patient Disposition: Home Provider Discharge Comment: You were found to have a stroke. Please take a baby aspirin every day. Your heart echo also showed a hole in your heart called a patent foramen ovale or PFO. We have referred you to cardiology at [facility] to see Dr. Fregoso to discuss having this closed through a PFO closure procedure. This would prevent strokes in the future. Your right eye blurriness will hopefully improve with time as your brain neurons recover. Dr. Ross Discharge orders & Medications Prescriptions: New aspirin 81 mg Tablet,Delayed Release (Dr/Ec) 81 mg PO DAILY Qty: 30 0RF Continued mecobalamin (vitamin B12) 5,000 mcg Tablet,Chewable 5,000 mcg PO WEEKLY Follow up/Referrals: Abbi,, [Primary Care Provider] - Other Ambulatory Orders: Referral to: (Schedule) Timeframe: 1 Week Location: Outside Services Ordered By: Asim Ross Visit Report/Discharge Packet Stand Alone Forms: Patient Portal/API, Stroke Signs & Symptoms, Against Medical Advice Discharge Data Primary Care Provider: Doctor Abbi
--- NOTE | 2023-10-22 14:36 | PC.NURSE ---
Pt discharged home at 1435, escorted off floor in wheelchair accompanied by hospital staff. IV removed, discharge teaching completed including new medications, follow up appointments and worsening symptoms. All belongings left floor with patient.
== END 2023-10-22 14:37 | disposition home or self-care (01) | DRG 65 ==
LOC: ED 15:00 → AC 10-22 08:12
PROVIDERS: Admitting Provider Student in an Organized Health Care Education/Training Program; Emergency Provider Emergency Medicine; Visit Provider Student in an Organized Health Care Education/Training Program
DX: I63.432 Cerebral infarction due to embolism of left posterior cerebral artery (principal); Q21.12 Patent foramen ovale; H53.47 Heteronymous bilateral field defects; R29.700 NIHSS score 0; H53.9 Unspecified visual disturbance
CPT/HCPCS: 36415; 70450; 70496; 70498; 70551; 80048; 80053; 80061; 83036; 83735; 84443; 85025; 93005; 93010; 93306; 99281; 99285; J1650; Q9967

== ENCOUNTER 2023-10-21 15:46 | Emergency (ER) | payer MEDICARE, OTHER, SELFPAY ==
[2023-10-21 15:49] VITALS: BP 176/77; PULSE 68; RESP 18; TEMP 37.1; O2SAT 99
== END 2023-10-21 16:16 | disposition home or self-care (01) ==
LOC: ED 15:53
DX: H53.9 Unspecified visual disturbance (principal)
CPT/HCPCS: 99281

== ENCOUNTER 2023-10-28 12:27 | Emergency (ER) | payer MEDICARE, OTHER, SELFPAY ==
[2023-10-28 12:35] VITALS: BP 156/69; PULSE 64; RESP 16; TEMP 36.1; O2SAT 98; BMI 19.1
--- NOTE | 2023-10-28 12:40 | DI.RAD.S_ITS ---
PROCEDURE: XR CHEST 1V INDICATIONS: Possible stroke TECHNIQUE: One view of the chest was acquired. COMPARISON: [facility], , XR CHEST 1V, 08/12/2020, 9:35. FINDINGS: Surgical changes and devices: None. Lungs and pleura: Small ovoid density projects over the right posterior 6th rib arc, not seen on the prior exam, nonspecific. Lungs are otherwise clear. No pleural effusions or pneumothorax. Mediastinum: Mediastinal contours appear normal. Heart size is normal. Bones and chest wall: No suspicious bony lesions. Surgical change in the right shoulder. Mild thoracic scoliosis. Overlying soft tissues appear unremarkable. IMPRESSION: 1. No acute abnormality. 2. Nonspecific right upper lobe nodule, pulmonary, osseous, or soft tissue. Recommend further evaluation with two view chest x-ray on a routine basis. Dictated by: Lainey Matt M.D. on 10/28/2023 at 13:28 Approved by: Lainey Matt M.D. on 10/28/2023 at 13:31
--- NOTE | 2023-10-28 12:40 | DI.CT.S_ITS ---
PROCEDURE: CT STROKE INDICATIONS: Positive BE-FAST, Stroke symptoms TECHNIQUE: Noncontrast 4.5 mm thick angled axial sections acquired from the foramen magnum to the vertex, with coronal reformats. For radiation dose reduction, the following was used: automated exposure control, adjustment of mA and/or kV according to patient size. COMPARISON: None. FINDINGS: Image quality: Diagnostic. CSF spaces: Basal cisterns are patent. No extra-axial fluid collections. The ventricles are symmetric in size and shape. Brain: No acute intraparenchymal or extra-axial hemorrhage. There has been evolution and increased edema involving a left posterior parietal occipital infarct seen previously with minor mass effect on the tentorium and adjacent falx. There is wedge-shaped hypodensity in the right cerebellar hemisphere, and several scattered subcortical hypodensities in bilateral MCA territories near the vertex. Cerebral volume loss appropriate for age. Background of chronic microvascular ischemic change. Skull and face: Calvarium and visualized facial bones appear intact, without suspicious lesions. Sinuses: Visualized sinuses and mastoids are clear. IMPRESSION: 1. No acute hemorrhage. 2. 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 Findings discussed with Dr. Mayes in the emergency room at 13:22 hours. This study fulfills neurological imaging criteria for inclusion or exclusion of acute stroke therapies based on available published neurological guidelines. Dictated by: Lainey Matt M.D. on 10/28/2023 at 13:19 Approved by: Lainey Matt M.D. on 10/28/2023 at 13:27
--- NOTE | 2023-10-28 12:41 | DI.CT.S_ITS ---
PROCEDURE: CT ANGIO HEAD AND NECK INDICATIONS: Stroke last week, new dizziness and blurry vision TECHNIQUE: After the administration of intravenous contrast, 1 mm thick sections acquired from the aortic arch through the [place] of [place]. 3-dimensional [id number] (MIP) and/or volume rendering reformats were acquired of the central intracranial vasculature and neck separately. For radiation dose reduction, the following was used: automated exposure control, adjustment of mA and/or kV according to patient size. COMPARISON: [facility], CT, CT ANGIO HEAD AND NECK, 10/21/2023, 12:03. FINDINGS: Image quality: Diagnostic. BRAIN: Please see separately dictated report of CT brain dated 10/28/2023. HEAD CT ANGIOGRAPHY: Anterior circulation: Intracranial internal carotid arteries are normal in size and flow. The flow within the paired anterior cerebral arteries is normal and symmetric. The flow within the middle cerebral arteries is normal and symmetric. The anterior communicating artery is seen. No aneurysms are seen. Posterior circulation: Mild left vertebral artery dominance. Visualized portions of the vertebral arteries demonstrate normal caliber, and join to form a normal appearing basilar artery. Flow within the posterior cerebral arteries is normal and symmetric. No aneurysms are seen. NECK CT ANGIOGRAPHY: Carotid system: The great vessels demonstrate a conventional anatomy as they arise from the aortic arch. The origins of the common carotid arteries appear patent. The common carotid arteries demonstrate normal caliber and courses. The bifurcation regions are both widely patent. The internal carotid arteries demonstrate normal calibers and courses. Posterior circulation: The origins of the vertebral arteries both appear widely patent. The more superior extracranial portions of both vertebral arteries also demonstrate normal courses and calibers. They join to form a normal appearing basilar artery. Soft tissues: Visualized neck soft tissues demonstrate no suspicious abnormalities. Bones: No suspicious bony lesions. Visualized cervical spine appears normally aligned. IMPRESSION: No interval change compared to 10/21/2023 exam. No areas of hemodynamically significant stenosis, vascular occlusion or aneurysmal dilation within the anterior circulation. No areas of hemodynamically significant stenosis, vascular occlusion or aneurysmal dilation within the posterior circulation. No areas of hemodynamically significant stenosis, vascular occlusion or aneurysmal dilation within the neck vasculature. Any quantitative measurements of stenosis were performed using NASCET criteria. Dictated by: Halie Jiménez M.D. on 10/28/2023 at 13:30 Approved by: Halie Jiménez M.D. on 10/28/2023 at 13:33
[2023-10-28 13:05] LABS: Add Manual Diff / Slide Review NO; Basophils Absolute Auto 0 /uL (0-100); Basophils Percent Auto 0.7 % (0-2); Eosinophils Absolute Auto 100 /uL (0-450); Eosinophils Percent Auto 1.1 % (2-4); Hematocrit 36.6 % (41-53); Hemoglobin 12.1 g/dL (13.5-17.5); Lymphocytes Absolute Auto 1000 /uL (1100-4500); Lymphocytes Percent Auto 18.3 % (25-40); Mean Corpuscular HGB Conc 33.1 % (30-36); Mean Corpuscular Hemoglobin 30.7 PG (26-34); Mean Corpuscular Volume 92.8 fL (80-100); Monocytes Absolute Auto 400 /uL (0-900); Monocytes Percent Auto 7.1 % (3-14); Neutrophils Absolute Auto 4000 /uL (1500-7000); Neutrophils Percent Auto 72.8 % (50-75); Platelet Count 195 X10^3/uL (150-400); Red Blood Cell Count 3.95 X10^6/uL (4.5-5.9); Red Cell Distribution Width 13.6 % (11.6-14.8); White Blood Cell Count 5.5 X10^3/uL (4.5-11.0)
[2023-10-28 13:11] LABS: Prothrombin Time 11.6 SECONDS (9.4-12.5)
[2023-10-28 13:13] LABS: PTT Partial Thromboplastin Tim 28 SECONDS (25.1-36.5)
[2023-10-28 13:15] LABS: Alanine Aminotransferase 29 IU/L (<50); Albumin 4.1 g/dL (3.5-5.0); Albumin Globulin Ratio 1.2 (1.0-2.8); Alkaline Phosphatase 170 U/L (38-126); Aspartate Aminotransferase 51 IU/L (17-59); BUN Creatinine Ratio 22.5 (6-22); Bilirubin Total 0.7 mg/dL (0.2-1.3); Blood Urea Nitrogen 18 mg/dL (9-20); Carbon Dioxide 26 mmol/L (22-32); Chloride 101 mmol/L (98-107); Creatine Kinase 270 U/L (55-170); Estimated Glomerular Filt Rate > 60 mL/min (>60); Globulin 3.3 g/dL (1.7-4.1); Glucose 102 mg/dL (80-110); HEMOLYSIS < 15 (0-50); Magnesium 2.5 mg/dL (1.6-2.3); Potassium 4.8 mmol/L (3.4-5.1); Sodium 133 mmol/L (137-145); Total Protein 7.4 g/dL (6.3-8.2)
[2023-10-28 13:24] LABS: UR Morphine/Opiate cutoff 300 Negative (Negative); Ur Creatinine Normal (Normal); Ur Specific Gravity Normal (Normal); Urine Amphetamines Negative (Negative); Urine Barbiturates Negative (Negative); Urine Benzodiazepines Negative (Negative); Urine Cocaine Negative (Negative); Urine MDMA Negative (Negative); Urine Methadone Negative (Negative); Urine Methamphetamines Negative (Negative); Urine Oxycodone Negative (Negative); Urine Phencyclidine Negative (Negative); Urine Tetrahydrocannabinol Negative (Negative); Urine Tricyclic Antidepressant Negative (Negative); Urine pH Normal (Normal)
[2023-10-28 13:27] LABS: Troponin I 0.044 ng/mL (0.01-0.034)
[2023-10-28 13:42] VITALS: BP 149/70; PULSE 61; O2SAT 98
[2023-10-28 15:07] VITALS: BP 139/63; PULSE 58; RESP 18; O2SAT 98
--- NOTE | 2023-10-28 15:24 | PC.NURSE ---
Pt states he normally has an unsteady gait, pt appears to be unsteady on feet. Pt also states he feels back to his normal baseline. Speech is clear, no other deficits noted upon exam.
--- NOTE | 2023-10-28 17:01 | ED_ITS ---
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 Patient states he had vision changes when he was seen on the . He states no worsening of his vision change but sort of had improved and come back a little bit. He notes a visual field defect mostly on the right. Patient states no headache, no neck pain, no chest pain or shortness of breath, no numbness, tingling or weakness. No difficulty with speech. He tried to follow up with primary care but isn't established. He is on aspirin 81 mg after being discharged from the hospital. Was not following with a physician regularly prior to this. Was found to have a PFO and has been referred to Cardiology for potential repair. Patient states he did meet with cardiology and was told that they may not require repair. States only other surgeries were tonsillectomy and a prior fatty tumor excised when he was young. No tobacco, alcohol or recreational drugs. Does not have a regular primary care at this time. 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 Patient states he had vision changes when he was seen on the . He states no worsening of his vision change but sort of had improved and come back a little bit. He notes a visual field defect mostly on the right. Patient states no headache, no neck pain, no chest pain or shortness of breath, no numbness, tingling or weakness. No difficulty with speech. He tried to follow up with primary care but isn't established. He is on aspirin 81 mg after being discharged from the hospital. Was not following with a physician regularly prior to this. Was found to have a PFO and has been referred to Cardiology for potential repair. Patient states he did meet with cardiology and was told that they may not require repair. States only other surgeries were tonsillectomy and a prior fatty tumor excised when he was young. No tobacco, alcohol or recreational drugs. Does not have a regular primary care at this time. Review of Systems <Susy Mayes DO - Last Filed: 10/31/23 07:36> Review of Systems ROS Unobtainable: All systems reviewed & are unremarkable except as noted in HPI and below Hematologic/Lymphatic On Anticoagulants: Yes (Aspirin) Patient History <Susy Mayes DO - Last Filed: 10/31/23 07:36> Medical History (Updated 10/28/23 @ 19:42 by Antoine York DO) Patient denies medical problems Sore throat Social History household members: none Smoking Status: Never smoker Smoking Status: Never smoker alcohol intake frequency: other Substance Use Type: does not use Exam <Susy Mayes DO - Last Filed: 10/31/23 07:36> Narrative Exam Narrative: GEN: well nourished, well appearing male, alert and oriented x 3, patient appears to be in mild distress. HEENT: Atraumatic, pupils are equal round reactive to light, extraocular movements are intact, nares are clear, TMs are clear with no fluid, there is no conjunctival pallor. Throat is clear without any exudates, erythema, tonsillar enlargement or uvular deviation, no facial droop HEART: Regular rate and rhythm without murmur, clicks, rubs. No carotid bruits, pulses are equal in upper and lower extremities LUNGS:Lungs clear to auscultation, no wheezes, rales, crackles, chest moves symmetrically ABD:bowel sounds normal, soft, non-tender, no guarding, rebound, rigidity, no masses noted, no hepatosplenomegaly MSCL: Non-tender, no muscle atrophy, muscles strength 5/5 upper and lower extremities, full range of motion NEURO:CN 2-12 intact, sensation normal, finger nose finger test normal, heel [place] test normal SKIN: No rash, erythema or other skin changes here Initial Vital Signs Initial Vital Signs: Vital Signs Temperature 97 F L 10/28/23 12:35 Pulse Rate 64 10/28/23 12:35 Respiratory Rate 16 10/28/23 12:35 Blood Pressure 156/69 H 10/28/23 12:35 Pulse Oximetry 98 10/28/23 12:35 Oxygen Delivery Method Room Air 10/28/23 12:35 <Antoine York DO - Last Filed: 10/28/23 22:41> Initial Vital Signs Initial Vital Signs: Vital Signs Temperature 97 F L 10/28/23 12:35 Pulse Rate 64 10/28/23 12:35 Respiratory Rate 16 10/28/23 12:35 Blood Pressure 156/69 H 10/28/23 12:35 Pulse Oximetry 98 10/28/23 12:35 Oxygen Delivery Method Room Air 10/28/23 12:35 Scores <Susy Mayes DO - Last Filed: 10/31/23 07:36> NIH Stroke Scale Level of Conciousness: Alert, keenly responsive Ask month/age: Answers both questions correctly. Open/close eyes, close hand: Performs both tasks correctly Best gaze horizontal: Normal Visual de [place] garza: Partial hemianopia Facial palsy: Normal symetrical movement Left arm drift: No drift for full 10 sec Right arm drift: No drift for full 10 sec Left leg drift: No drift for full 5 sec Right leg drift: No drift for full 5 sec Limb ataxia: Absent Sensory on face/arms/legs: Normal, no sensory loss Best language: No aphasia, normal Dysarthria: Normal Extinction or inattention: No abnormality Total NIH Stroke scale score: 1 <DO Shameka Pink Last Filed: 10/28/23 22:41> NIH Stroke Scale Total NIH Stroke scale score: 1 Course <DO Shameka Kothari Last Filed: 10/31/23 07:36> Orders Ordered: Discontinued Medications Ondansetron HCl (Ondansetron 4 Mg/2 Ml Inj) 4 mg IV NOW PRN PRN Reason: Nausea And Vomiting Ondansetron HCl (Ondansetron 4 Mg Odt) 4 mg SL NOW PRN PRN Reason: Nausea And Vomiting Vital Signs Vital signs: Vital Signs - 8 hr 10/28/23 15:07 10/28/23 15:07 10/28/23 15:07 Pulse Rate 58 L 58 L Respiratory Rate 18 Blood Pressure 139/63 139/63 Pulse Oximetry 98 98 Oxygen Delivery Method 10/28/23 18:32 10/28/23 18:33 10/28/23 18:33 Pulse Rate 53 L Respiratory Rate Blood Pressure 158/67 H Pulse Oximetry 94 99 Oxygen Delivery Method Room Air <Antoine York, DO - Last Filed: 10/28/23 22:41> Orders Ordered: Discontinued Medications Ondansetron HCl (Ondansetron 4 Mg/2 Ml Inj) 4 mg IV NOW PRN PRN Reason: Nausea And Vomiting Ondansetron HCl (Ondansetron 4 Mg Odt) 4 mg SL NOW PRN PRN Reason: Nausea And Vomiting Vital Signs Vital signs: Vital Signs - 8 hr 10/28/23 15:07 10/28/23 15:07 10/28/23 15:07 Pulse Rate 58 L 58 L Respiratory Rate 18 Blood Pressure 139/63 139/63 Pulse Oximetry 98 98 Oxygen Delivery Method 10/28/23 18:32 10/28/23 18:33 10/28/23 18:33 Pulse Rate 53 L Respiratory Rate Blood Pressure 158/67 H Pulse Oximetry 94 99 Oxygen Delivery Method Room Air MDM - Neuro Symptoms/Deficit <Susy Mayes, DO - Last Filed: 10/31/23 07:36> Lab Data 10/28/23 12:49 10/28/23 12:49 Labs: Lab Results 10/28/23 10/28/23 Range/Units 12:49 13:11 WBC 5.5 (4.5-11.0) X10^3/uL RBC 3.95 L (4.5-5.9) X10^6/uL Hgb 12.1 L (13.5-17.5) g/dL Hct 36.6 L (41-53) % MCV 92.8 (80-100) fL MCH 30.7 (26-34) PG MCHC 33.1 (30-36) % RDW 13.6 (11.6-14.8) % Plt Count 195 (150-400) X10^3/uL Neut % (Auto) 72.8 (50-75) % Lymph % (Auto) 18.3 L (25-40) % [place] % (Auto) 7.1 (3-14) % Eos % (Auto) 1.1 L (2-4) % Baso % (Auto) 0.7 (0-2) % Neut # (Auto) 4000 (5595-1201) /uL Lymph # (Auto) 1000 L (4803-1390) /uL [place] # (Auto) 400 (0-900) /uL Eos # (Auto) 100 (0-450) /uL Baso # (Auto) 0 (0-100) /uL PT 11.6 (9.4-12.5) SECONDS INR 1.0 (0.9-1.3) APTT 28 (25.1-36.5) SECONDS Sodium 133 L (137-145) mmol/L Potassium 4.8 (3.4-5.1) mmol/L Chloride 101 (98-107) mmol/L Carbon Dioxide 26 (22-32) mmol/L BUN 18 (9-20) mg/dL Creatinine 0.80 (0.66-1.25) mg/dL Estimated GFR > 60 (>60) mL/min BUN/Creatinine Ratio 22.5 H (6-22) Glucose 102 (80-110) mg/dL Calcium 9.0 (8.4-10.2) mg/dL Magnesium 2.5 H (1.6-2.3) mg/dL Total Bilirubin 0.7 (0.2-1.3) mg/dL AST 51 (17-59) IU/L ALT 29 (<50) IU/L Alkaline Phosphatase 170 H (38-126) U/L Total Creatine Kinase 270 H (55-170) U/L Troponin I 0.044 H (0.01-0.034) ng/mL Total Protein 7.4 (6.3-8.2) g/dL Albumin 4.1 (3.5-5.0) g/dL Globulin 3.3 (1.7-4.1) g/dL Albumin/Globulin Ratio 1.2 (1.0-2.8) U Opiates 300ng/mL cut Negative (Negative) Ur Oxycodone Screen Negative (Negative) Urine Methadone Screen Negative (Negative) Ur Barbiturates Screen Negative (Negative) U Tricyclic Antidepress Negative (Negative) Ur Phencyclidine Scrn Negative (Negative) Ur Amphetamines Screen Negative (Negative) U Methamphetamines Scrn Negative (Negative) Ur MDMA Scrn (Ecstasy) Negative (Negative) U Benzodiazepines Scrn Negative (Negative) Urine Cocaine Screen Negative (Negative) U Marijuana (THC) Screen Negative (Negative) Urine pH Normal (Normal) Urine Specific [place] Normal (Normal) Ur Creatinine Normal (Normal) Urine Dip Bedside Urine Glucose Negative Bedside Urine Bilirubin - Negative Bedside Urine Ketone - Negative Urine Specific [place] 1.000 Bedside Urine Occult Blood - Negative Bedside Urine pH 7.5 Bedside Urine Protein - Negative Bedside Urine Urobilinogen - Negative Bedside Urine Nitrite - Negative Bedside Urine Leukocytes - Negative Esterase Imaging Data CT scan - head: Radiologist's Impression: [address] [address] [address] Scan Report Signed Patient: Roel West MR#: [id number] : 1940 Acct:[id number] Age/Sex: 82 / M Date of Service: 10/28/23 Loc: ED Accession Number: [id number] Procedure: CT Stroke Ordering Provider: Susy Mayes D.O. PROCEDURE: CT STROKE INDICATIONS: Positive BE-FAST, Stroke symptoms TECHNIQUE: Noncontrast 4.5 mm thick angled axial sections acquired from the foramen magnum to the vertex, with coronal reformats. For radiation dose reduction, the following was used: automated exposure control, adjustment of mA and/or kV according to patient size. COMPARISON: None. FINDINGS: Image quality: Diagnostic. CSF spaces: Basal cisterns are patent. No extra-axial fluid collections. The ventricles are symmetric in size and shape. Brain: No acute intraparenchymal or extra-axial hemorrhage. There has been evolution and increased edema involving a left posterior parietal occipital infarct seen previously with minor mass effect on the tentorium and adjacent falx. There is wedge- shaped hypodensity in the right cerebellar hemisphere, and several scattered subcortical hypodensities in bilateral MCA territories near the vertex. Cerebral volume loss appropriate for age. Background of chronic microvascular ischemic change. Skull and face: Calvarium and visualized facial bones appear intact, without suspicious lesions. Sinuses: Visualized sinuses and mastoids are clear. IMPRESSION: 1. No acute hemorrhage. 2. 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 Findings discussed with Dr. Mayes in the emergency room at 13:22 hours. This study fulfills neurological imaging criteria for inclusion or exclusion of acute stroke therapies based on available published neurological guidelines. Dictated by: Lainey Matt M.D. on 10/28/2023 at 13:19 Approved by: Lainey Matt M.D. on 10/28/2023 at 13:27 CTA - brain/neck: Radiologist's Impression: Close Head/Neck CTA (Signed) Halie Jiménez - 10/28/23 Chest X-Ray (Signed) Lainey Matt - 10/28/[address] (Signed) Lainey Matt - 10/28/23 Echocardiogram Ultrasound 10/21/23 Telemetry Strips 10/21/23 Head/Neck CTA (Signed) Niraj Gomez - 10/21/23 Brain MRI (Signed) Juan Carlos Lambert - 10/21/[address] (Signed) Halie Jiménez - 10/21/23 Chest X-Ray (Signed) Juan Carlos Lambert - 08/12/20 [facility]?[place] [address] CT Scan Report Signed Patient: Roel West MR#: [id number] : 1940 Acct:[id number] Age/Sex: 82 / M Date of Service: 10/28/23 Loc: ED Accession Number: [id number] Procedure: CT angio head and neck Ordering Provider: Susy Mayes D.O. PROCEDURE: CT ANGIO HEAD AND NECK INDICATIONS: Stroke last week, new dizziness and blurry vision TECHNIQUE: After the administration of intravenous contrast, 1 mm thick sections acquired from the aortic arch through the [place] of [place]. 3-dimensional ipvsokg-vmlhbqxeo-yilysizooa (MIP) and/or volume rendering reformats were acquired of the central intracranial vasculature and neck separately. For radiation dose reduction, the following was used: automated exposure control, adjustment of mA and/or kV according to patient size. COMPARISON: [facility], CT, CT ANGIO HEAD AND NECK, 10/21/2023, 12:03. FINDINGS: Image quality: Diagnostic. BRAIN: Please see separately dictated report of CT brain dated 10/28/2023. HEAD CT ANGIOGRAPHY: Anterior circulation: Intracranial internal carotid arteries are normal in size and flow. The flow within the paired anterior cerebral arteries is normal and symmetric. The flow within the middle cerebral arteries is normal and symmetric. The anterior communicating artery is seen. No aneurysms are seen. Posterior circulation: Mild left vertebral artery dominance. Visualized portions of the vertebral arteries demonstrate normal caliber, and join to form a normal appearing basilar artery. Flow within the posterior cerebral arteries is normal and symmetric. No aneurysms are seen. NECK CT ANGIOGRAPHY: Carotid system: The great vessels demonstrate a conventional anatomy as they arise from the aortic arch. The origins of the common carotid arteries appear patent. The common carotid arteries demonstrate normal caliber and courses. The bifurcation regions are both widely patent. The internal carotid arteries demonstrate normal calibers and courses. Posterior circulation: The origins of the vertebral arteries both appear widely patent. The more superior extracranial portions of both vertebral arteries also demonstrate normal courses and calibers. They join to form a normal appearing basilar artery. Soft tissues: Visualized neck soft tissues demonstrate no suspicious abnormalities. Bones: No suspicious bony lesions. Visualized cervical spine appears normally aligned. IMPRESSION: No interval change compared to 10/21/2023 exam. No areas of hemodynamically significant stenosis, vascular occlusion or aneurysmal dilation within the anterior circulation. No areas of hemodynamically significant stenosis, vascular occlusion or aneurysmal dilation within the posterior circulation. No areas of hemodynamically significant stenosis, vascular occlusion or aneurysmal dilation within the neck vasculature. Any quantitative measurements of stenosis were performed using NASCET criteria. Dictated by: Halie Jiménez M.D. on 10/28/2023 at 13:30 Approved by: Halie Jiménez M.D. on 10/28/2023 at 13:33 Chest x-ray: Radiologist's Impression: [address] [address] XRay Report Signed Patient: Roel West MR#: [id number] : 1940 Acct:[id number] Age/Sex: 82 / M Date of Service: 10/28/23 Loc: ED Accession Number: [id number] Procedure: XR chest 1V Ordering Provider: Susy Mayes D.O. PROCEDURE: XR CHEST 1V INDICATIONS: Possible stroke TECHNIQUE: One view of the chest was acquired. COMPARISON: [facility], CR, XR CHEST 1V, 08/12/2020, 9:35. FINDINGS: Surgical changes and devices: None. Lungs and pleura: Small ovoid density projects over the right posterior 6th rib arc, not seen on the prior exam, nonspecific. Lungs are otherwise clear. No pleural effusions or pneumothorax. Mediastinum: Mediastinal contours appear normal. Heart size is normal. Bones and chest wall: No suspicious bony lesions. Surgical change in the right shoulder. Mild thoracic scoliosis. Overlying soft tissues appear unremarkable. IMPRESSION: 1. No acute abnormality. 2. Nonspecific right upper lobe nodule, pulmonary, osseous, or soft tissue. Recommend further evaluation with two view chest x-ray on a routine basis. Dictated by: Lainey Matt M.D. on 10/28/2023 at 13:28 Approved by: Lainey Matt M.D. on 10/28/2023 at 13:31 ECG Data Attestation: I personally reviewed and interpreted this ECG as follows: Interpretation: Bradycardia rate of 57 KS 154 QRS is 78 [address]TC [address] No acute ST elevation depression. MDM Narrative Medical decision making narrative: 82-year-old male with complaint of vision change similar to when he was seen here on 10/21/2023 with a subacute infarction. 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 Patient's symptoms seem fairly consistent with last maybe re-emergence of symptoms but patient's symptoms were quite mild last time. Head CT shows no bleed, CT angio today shows no vascular occlusion, stenosis or aneurysm. No acute hemorrhage, evolution of known bilateral cerebral and cerebellar infarcts most extensive left temporal occipital region. Findings discussed with myself by Dr. Matt. Labs including CBC, INR, CMP show sodium 133 Mag 2.5 alk-phos 170 trope was indeterminate 0.044 but patient does not have any current symptoms. Discussed with patient NIH is 1 but very similar to when he was here last. Has no new symptoms but sort of waxing and waning symptoms from his prior. Discussed with patient can not really rule out old or new stroke he was found to have a PFO is on aspirin 81 mg daily. Patient is agreeable to MR for full evaluation. Signed out to Dr. York while awaiting MR report. If negative plan for d/c home. Patient does have follow up Ophthalmology appointment tomorrow although suspect his symptoms are more from his neurologic issues. Stroke Core Measures Exclusion Criteria TPA in CVA: Symptom Onset >3 or 4.5 Hours <Antoine York DO - Last Filed: 10/28/23 22:41> Lab Data Labs: Lab Results 10/28/23 10/28/23 Range/Units 12:49 13:11 WBC 5.5 (4.5-11.0) X10^3/uL RBC 3.95 L (4.5-5.9) X10^6/uL Hgb 12.1 L (13.5-17.5) g/dL Hct 36.6 L (41-53) % MCV 92.8 (80-100) fL MCH 30.7 (26-34) PG MCHC 33.1 (30-36) % RDW 13.6 (11.6-14.8) % Plt Count 195 (150-400) X10^3/uL Neut % (Auto) 72.8 (50-75) % Lymph % (Auto) 18.3 L (25-40) % [place] % (Auto) 7.1 (3-14) % Eos % (Auto) 1.1 L (2-4) % Baso % (Auto) 0.7 (0-2) % Neut # (Auto) 4000 (2280-8056) /uL Lymph # (Auto) 1000 L (2855-5889) /uL [place] # (Auto) 400 (0-900) /uL Eos # (Auto) 100 (0-450) /uL Baso # (Auto) 0 (0-100) /uL PT 11.6 (9.4-12.5) SECONDS INR 1.0 (0.9-1.3) APTT 28 (25.1-36.5) SECONDS Sodium 133 L (137-145) mmol/L Potassium 4.8 (3.4-5.1) mmol/L Chloride 101 (98-107) mmol/L Carbon Dioxide 26 (22-32) mmol/L BUN 18 (9-20) mg/dL Creatinine 0.80 (0.66-1.25) mg/dL Estimated GFR > 60 (>60) mL/min BUN/Creatinine Ratio 22.5 H (6-22) Glucose 102 (80-110) mg/dL Calcium 9.0 (8.4-10.2) mg/dL Magnesium 2.5 H (1.6-2.3) mg/dL Total Bilirubin 0.7 (0.2-1.3) mg/dL AST 51 (17-59) IU/L ALT 29 (<50) IU/L Alkaline Phosphatase 170 H (38-126) U/L Total Creatine Kinase 270 H (55-170) U/L Troponin I 0.044 H (0.01-0.034) ng/mL Total Protein 7.4 (6.3-8.2) g/dL Albumin 4.1 (3.5-5.0) g/dL Globulin 3.3 (1.7-4.1) g/dL Albumin/Globulin Ratio 1.2 (1.0-2.8) U Opiates 300ng/mL cut Negative (Negative) Ur Oxycodone Screen Negative (Negative) Urine Methadone Screen Negative (Negative) Ur Barbiturates Screen Negative (Negative) U Tricyclic Antidepress Negative (Negative) Ur Phencyclidine Scrn Negative (Negative) Ur Amphetamines Screen Negative (Negative) U Methamphetamines Scrn Negative (Negative) Ur MDMA Scrn (Ecstasy) Negative (Negative) U Benzodiazepines Scrn Negative (Negative) Urine Cocaine Screen Negative (Negative) U Marijuana (THC) Screen Negative (Negative) Urine pH Normal (Normal) Urine Specific [place] Normal (Normal) Ur Creatinine Normal (Normal) Urine Dip Bedside Urine Glucose Negative Bedside Urine Bilirubin - Negative Bedside Urine Ketone - Negative Urine Specific [place] 1.000 Bedside Urine Occult Blood - Negative Bedside Urine pH 7.5 Bedside Urine Protein - Negative Bedside Urine Urobilinogen - Negative Bedside Urine Nitrite - Negative Bedside Urine Leukocytes - Negative Esterase Imaging Data Brain MRI: Radiologist's Impression: PROCEDURE: MR HEAD/BRAIN WO CON INDICATIONS: new stroke? had + mr/cva 10/21/23 TECHNIQUE: Non-contrast axial T1 spin echo, axial T2 fast spin echo, sagittal and axial FLAIR, coronal T2 fast spin echo, axial gradient echo, axial diffusion and ADC through the brain. COMPARISON: [facility], CT, CT ANGIO HEAD AND NECK, 10/28/2023, 13:03. [facility], CT, CT STROKE, 10/28/2023, 13:03. [facility], MR, MR HEAD/BRAIN WO CON, 10/21/2023, 11:04. FINDINGS: Image quality: Excellent. CSF spaces: Ventricles appear symmetric in size and shape. Basal cisterns are patent. No extra-axial fluid collections. Brain: There is again abnormal diffusion-weighted signal involving the posterior aspect of the left cerebral hemisphere, which primarily involves the left [employer]CH[employer] DESIGN ENGINEER territory. There is associated dark signal on the ADC map. This infarction overall appears worse than on the 10/21/2023 examination, with expansion and more prominent diffusion-weighted abnormality. Smaller additional foci of abnormal diffusion-weighted signal can be seen scattered within both cerebral hemispheres as well as within both cerebellar hemispheres. These additional foci of infarction are roughly similar to the prior examination. Associated developing T2 weighted signal can be seen at these sites, particularly involving the posterior aspect of the left cerebral hemisphere. No definite findings of hemorrhagic transformation can be seen. No intracranial mass effects. There is a small focus of hemosiderin deposition within the posterior medial right frontal lobe, as on series 11, image 14, which is similar to the prior. There is cerebral volume loss for age. There are periventricular and deep white matter chronic small vessel ischemic changes. Brainstem appears normal. No chronic ischemic insults. Normal intravascular flow voids are present. Relatively prominent perivascular spaces are noted. Skull and face: Calvarial bone marrow is normal in signal. Orbits are normal. Sinuses: Sinuses and mastoids are clear. IMPRESSION: Interval expansion of the area of infarction involving the posterior aspect of the left cerebral hemisphere, which primarily involves the left MECH[employer] DESIGN ENGINEER territory. Stable scattered foci of infarction can be seen elsewhere within both cerebral hemispheres and within both cerebellar hemispheres. MDM Narrative Medical decision making narrative: 82-year-old male with complaint of vision change similar to when he was seen here on 10/21/2023 with a subacute infarction. 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 Patient's symptoms seem fairly consistent with last maybe re-emergence of symptoms but patient's symptoms were quite mild last time. Head CT shows no bleed, CT angio today shows no vascular occlusion, stenosis or aneurysm. No acute hemorrhage, evolution of known bilateral cerebral and cerebellar infarcts most extensive left temporal occipital region. Findings discussed with myself by Dr. Matt. Labs including CBC, INR, CMP show sodium 133 Mag 2.5 alk-phos 170 trope was indeterminate 0.044 but patient does not have any current symptoms. Discussed with patient NIH is 1 but very similar to when he was here last. Has no new symptoms but sort of waxing and waning symptoms from his prior. Discussed with patient can not really rule out old or new stroke he was found to have a PFO is on aspirin 81 mg daily. Patient is agreeable to MR for full evaluation. Signed out to Dr. York while awaiting MR report. If negative plan for d/c home. Patient does have follow up Ophthalmology appointment tomorrow although suspect his symptoms are more from his neurologic issues. Dr York: Received turned over. Reviewed patient's history and physical and workup up to this point. The MRI of the brain today shows spread of the previous areas of infarct however no hemorrhagic conversion. No reports of new infarction. When I went to evaluate the patient he stated that his vision symptoms for actually improved from when he came in. He has no new neurologic symptoms. Patient is on an aspirin. He does not want to take any other medications besides the aspirin. Has a follow-up appointment with cardiology already scheduled. Was no indication for admission to the hospital. Will discharge patient home to keep his follow-up appointment with Cardiology. He was given return precautions. He understanding and agreement. Discharge Plan Departure Patient Disposition: Home Clinical Impression: Changes in vision, Stroke Activity Restrictions/Additional Instructions: I recommend that you continue to take all of your medications as directed and keep your scheduled appointment that you have with Cardiology. I would talk with the bean picker about the indications for a Holter monitor. You can contact [phone] help establish a primary doctor as well. Return to the emergency department for new symptoms. Prescriptions: No Action mecobalamin (vitamin B12) 5,000 mcg Tablet,Chewable 5,000 mcg PO WEEKLY aspirin 81 mg Tablet,Delayed Release (Dr/Ec) 81 mg PO DAILY Qty: 30 0RF Referrals: Miscellaneous,Doctor, [Primary Care Provider] - Stand Alone Forms: Patient Portal/API ED Sign-out <Susy Mayes DO - Last Filed: 10/31/23 07:36> Cosign ED Attending Sophia Attestation: I was immediately available in the department for consultation.
--- NOTE | 2023-10-28 17:38 | DI.MRI.S_ITS ---
PROCEDURE: MR HEAD/BRAIN WO CON INDICATIONS: new stroke? had + mr/cva 10/21/23 TECHNIQUE: Non-contrast axial T1 spin echo, axial T2 fast spin echo, sagittal and axial FLAIR, coronal T2 fast spin echo, axial gradient echo, axial diffusion and ADC through the brain. COMPARISON: [facility], CT, CT ANGIO HEAD AND NECK, 10/28/2023, 13:03. [facility], CT, CT STROKE, 10/28/2023, 13:03. [facility], MR, MR HEAD/BRAIN WO CON, 10/21/2023, 11:04. FINDINGS: Image quality: Excellent. CSF spaces: Ventricles appear symmetric in size and shape. Basal cisterns are patent. No extra-axial fluid collections. Brain: There is again abnormal diffusion-weighted signal involving the posterior aspect of the left cerebral hemisphere, which primarily involves the left HOTBED OPERATOR territory. There is associated dark signal on the ADC map. This infarction overall appears worse than on the 10/21/2023 examination, with expansion and more prominent diffusion-weighted abnormality. Smaller additional foci of abnormal diffusion-weighted signal can be seen scattered within both cerebral hemispheres as well as within both cerebellar hemispheres. These additional foci of infarction are roughly similar to the prior examination. Associated developing T2 weighted signal can be seen at these sites, particularly involving the posterior aspect of the left cerebral hemisphere. No definite findings of hemorrhagic transformation can be seen. No intracranial mass effects. There is a small focus of hemosiderin deposition within the posterior medial right frontal lobe, as on series 11, image 14, which is similar to the prior. There is cerebral volume loss for age. There are periventricular and deep white matter chronic small vessel ischemic changes. Brainstem appears normal. No chronic ischemic insults. Normal intravascular flow voids are present. Relatively prominent perivascular spaces are noted. Skull and face: Calvarial bone marrow is normal in signal. Orbits are normal. Sinuses: Sinuses and mastoids are clear. IMPRESSION: Interval expansion of the area of infarction involving the posterior aspect of the left cerebral hemisphere, which primarily involves the left HOTBED OPERATOR territory. Stable scattered foci of infarction can be seen elsewhere within both cerebral hemispheres and within both cerebellar hemispheres. Dictated by: Juan Carlos Lambert M.D. on 10/28/2023 at 18:05 Approved by: Juan Carlos Lambert M.D. on 10/28/2023 at 18:09
[2023-10-28 18:32] VITALS: O2SAT 94
[2023-10-28 18:33] VITALS: BP 158/67; PULSE 53; O2SAT 99
== END 2023-10-28 19:52 | disposition home or self-care (01) ==
PROVIDERS: Emergency Medicine; Emergency Provider Emergency Medicine
DX: I63.9 Cerebral infarction, unspecified (principal); H53.9 Unspecified visual disturbance; R29.701 NIHSS score 1; Z79.82 Long term (current) use of aspirin
CPT/HCPCS: 36415; 70450; 70496; 70498; 70551; 71045; 80053; 80305; 81003; 82550; 83735; 84484; 85025; 85610; 85730; 93005; 93010; 99284; Q9967

== ENCOUNTER → 2023-11-14 15:46 | Outpatient (CLI) | payer MEDICARE, OTHER, SELFPAY ==
[2023-11-14 17:57] LABS: Add Manual Diff / Slide Review NO; Basophils Absolute Auto 0 /uL (0-100); Basophils Percent Auto 0.7 % (0-2); Eosinophils Absolute Auto 100 /uL (0-450); Eosinophils Percent Auto 2.4 % (2-4); Hematocrit 35.6 % (41-53); Hemoglobin 11.8 g/dL (13.5-17.5); Lymphocytes Absolute Auto 1300 /uL (1100-4500); Mean Corpuscular Hemoglobin 30.6 PG (26-34); Mean Corpuscular Volume 92.6 fL (80-100); Monocytes Absolute Auto 500 /uL (0-900); Monocytes Percent Auto 10.2 % (3-14); Neutrophils Absolute Auto 3100 /uL (1500-7000); Neutrophils Percent Auto 61.7 % (50-75); Platelet Count 211 X10^3/uL (150-400); Red Blood Cell Count 3.85 X10^6/uL (4.5-5.9); Red Cell Distribution Width 13.7 % (11.6-14.8)
[2023-11-14 18:18] LABS: HEMOLYSIS < 15 (0-50); Iron 70 ug/dL (49-181)
[2023-11-14 18:28] LABS: Percent Iron Saturation 22 % (20-50); Total Iron Binding Capacity 312 ug/dL (261-462); Transferrin 259 mg/dL (206-381)
[2023-11-14 18:52] LABS: Prostate Specific Antigen Scrn 83.6 ng/mL (0.1-4.0)
[2023-11-14 18:56] LABS: Ferritin 88 ng/mL (18-464)
== END ==
PROVIDERS: Referring Provider Family Medicine; Visit Provider Family Medicine
DX: Z12.5 Encounter for screening for malignant neoplasm of prostate (principal); I63.9 Cerebral infarction, unspecified; N40.0 Benign prostatic hyperplasia without lower urinary tract symptoms
CPT/HCPCS: 36415; 82728; 83540; 83550; 85025; G0103

== ENCOUNTER → 2023-12-18 13:18 | Outpatient (CLI) | payer MEDICARE, OTHER, SELFPAY ==
--- NOTE | 2023-12-18 13:19 | DI.MRI.S_ITS ---
PROCEDURE: MR PELVIC PROSTATE PROTOCOL INDICATIONS: PSA >80 TECHNIQUE: Coronal HASTE, axial T1 FSE with fat saturation, 3-plane nonbreath-hold T2 FSE. After the administration of contrast, dynamic axial, delayed axial and coronal VIBE or 2-D FLASH with fat saturation through the pelvis. Diffusion weighted imaging and ADC was performed. COMPARISON: [facility], CT, CT ANGIO HEAD AND NECK, 10/28/2023, 13:03. FINDINGS: Image quality: Diffusion weighted and dynamic contrast enhanced images are diagnostic. PSA: 83.6 PSA density: 2 Prostate: Gland size is 4.3 x 3.6 x 5.1 cm; ellipsoid gland volume is 41 mL. Lesion 1: Location: Left peripheral zone, mid gland to base, on axial series 4, image 13 and coronal series 5, image 12. Size: 4.0 x 3.3 cm. T2W signal: Hypointense. DWI signal: Markedly hyperintense. ADC signal: Markedly hypointense. Enhancement: Yes. Extracapsular extension: Yes. Invasion of the left neurovascular bundle and the seminal vesicles, left greater than right. Lack of fat plane between the anterior rectum and the prostate mass is also apparent. PI-RADS score: 5 Genitourinary system: Bladder wall thickness is normal. Distal ureters are non distended. Bowel and peritoneum: No pathologic free pelvic fluid. Inferior colon and small bowel loops are normal in caliber. Nodes and vessels: Left external iliac chain node measuring 1.5 cm short axis, most consistent with savanah disease. Soft tissues: No inguinal hernias. Bones: Multiple enhancing bony lesions. For instance, the 2.6 right iliac bone mass (series 21, image 47). 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 Left external iliac chain adenopathy. Osseous metastatic disease present. Dictated by: Niraj Gomez M.D. on 12/18/2023 at 14:37 Approved by: Niraj Gomez M.D. on 12/18/2023 at 14:42
== END ==
LOC: MRI 13:19
PROVIDERS: PCP Family Medicine; Referring Provider Family Medicine; Visit Provider Family Medicine
DX: C61 Malignant neoplasm of prostate (principal); C79.51 Secondary malignant neoplasm of bone; R59.0 Localized enlarged lymph nodes; R97.20 Elevated prostate specific antigen [PSA]
CPT/HCPCS: 72197; A9579

== ENCOUNTER 2023-12-21 10:54 | Emergency (ER) | payer MEDICARE, OTHER, SELFPAY ==
[2023-12-21] VITALS (67 sets, daily range): BP systolic 90–168; BP diastolic 55–77; PULSE 55–76; RESP 18–29; TEMP 35.2–37.6; O2SAT 91–100
--- NOTE | 2023-12-21 11:09 | DI.CT.S_ITS ---
PROCEDURE: CT HEAD/BRAIN WO CON INDICATIONS: AMS TECHNIQUE: Noncontrast 4.5 mm thick angled axial sections acquired from the foramen magnum to the vertex, with coronal and sagittal reformats. For radiation dose reduction, the following was used: automated exposure control, adjustment of mA and/or kV according to patient size. COMPARISON: [facility], CT, CT STROKE, 10/28/2023, 13:03. [facility], MR, MR HEAD/BRAIN WO CON, 10/28/2023, 17:46. [facility], CR, XR CHEST 1V, 12/21/2023, 11:12. [facility], CT, CT HEAD/BRAIN WO CON, 10/21/2023, 8:36. FINDINGS: Image quality: This examination is limited by involuntary motion artifact. Mild streak artifact can be seen through the skull base. CSF spaces: Basal cisterns are patent. No extra-axial fluid collections. The ventricles are symmetric in size and shape. Brain: Numerous areas of low density can be seen involving both cerebral hemispheres, which are new compared to the 10/28/2023 CT. There is also a remote left MANAGER COMPLIANCE territory infarction. No intracranial bleeds or masses. There is cerebral volume loss for age, with resultant ventricular and sulcal prominence. There are periventricular and deep white matter chronic small vessel ischemic changes. There is intracranial internal carotid artery atherosclerosis. Skull and face: Calvarium and visualized facial bones appear intact, without suspicious lesions. Sinuses: Visualized sinuses and mastoids are clear. This patient is intubated. IMPRESSION: Extensive areas of low density infarction can be seen throughout both cerebral hemispheres, which are attributed to multiple areas of significant subacute infarction. No findings of hemorrhagic transformation are seen. There is a remote left MANAGER COMPLIANCE territory infarction again seen. If it would be helpful for clinical management decision making in this patient with this given history, please consider a dedicated brain MRI for further evaluation (assuming that there is no contraindication). Dictated by: Juan Carlos Lambert M.D. on 12/21/2023 at 11:13 Approved by: Juan Carlos Lambert M.D. on 12/21/2023 at 11:15
--- NOTE | 2023-12-21 11:10 | ED.GENADULT ---
HPI - General Adult General Chief complaint: Unresponsive Stated complaint: AMS Time Seen by Provider: 12/21/23 11:08 Source: EMS Mode of arrival: EMS Limitations: altered mental status History of Present Illness HPI narrative: Patient is an 83-year-old male who arrives intubated from EMS secondary to altered mental status. EMS has limited information other than they know that the patient recently had a stroke within the past 2 months. He lives at home by himself. Apparently neighbors had not seen him in a couple days so EMS was called. They found the patient at his house on the floor. GCS of 3. Unable to provide any information. He was intubated in the field with ketamine and rocuronium. Patient is unable to provide any HPI or review of systems. Related Data Home Medications Medication Instructions Recorded Confirmed mecobalamin (vitamin B12) 5,000 5,000 mcg PO WEEKLY 10/22/23 12/15/23 mcg chewable tablet Previous Rx's Medication Instructions Recorded aspirin 81 mg tablet,delayed 81 mg PO DAILY #30 tabs 10/22/23 release Allergies Allergy/AdvReac Type Severity Reaction Status Date / Time No Known Drug Allergies Allergy Unverified 12/15/23 13:55 Review of Systems Review of Systems ROS Unobtainable: Unobtainable due to medical condition Patient History Medical History PFO (patent foramen ovale) Elevated prostate specific antigen greater than or equal to 20 ng/ml Patient denies medical problems Sore throat Social History household members: none Smoking Status: Never smoker Smoking Status: Never smoker alcohol intake frequency: other Substance Use Type: does not use Exam Initial Vital Signs Initial Vital Signs: Vital Signs Temperature 95.4 F L 12/21/23 10:55 Pulse Rate 76 12/21/23 10:55 Respiratory Rate 18 12/21/23 10:55 Blood Pressure 90/62 12/21/23 10:55 Pulse Oximetry 98 12/21/23 10:55 Oxygen Delivery Method Mechanical Ventilation, Ambu Bag 12/21/23 10:55 Const General: ill appearing Other: Disheveled, covered with stool, HENMT Head: normal to inspection and normocephalic Face and sinus: normal facial exam Eyes Other: Pupils are equal and unreactive Resp Other: Patient is intubated. Not breathing on his own. Bilateral breath sounds without wheezes Cardio Rate: regular rate Rhythm: regular rhythm GI Inspection: non-distended Palpation: soft Skin Other: Patient is covered in stool. No signs of acute trauma Neuro Other: Patient is intubated. Not responsive to stimuli. Extrem Other: No gross deformities. Procedures Intubation sedative: none ET Tube Size: 7.5 ET Tube Uncuffed: No Tube Secured Depth (cm): 21 Tube Secured Location: teeth Tube Placement Confirmation: Visualized tube passing through cords, Equal breath sounds bilaterally, Confirmation by capnometry and Chest Xray Intubation Complications: none Scores GCS Brig[place] coma scale eye opening: None [place] coma scale verbal response: None [place] coma scale motor response: None [place] coma scale total score: 3 Course Orders Ordered: ED Orders 12/21/23 10:50 Acetaminophen Stat Complete Blood Count AUTO DIFF Stat Comprehensive Metabolic Panel Stat Ethanol (ETOH) Stat Lactate (Lactic Acid) Stat Lipase Stat Magnesium Stat PTT Partial Thromboplastin [place] Stat Procalcitonin Stat Prothrombin Time INR Stat Salicylate Stat Thyroid Stimulating Hormone Stat Troponin & CK Cardiac Panel Stat 12/21/23 11:09 CT head/brain wo con Stat XR chest 1V Stat 12/21/23 11:10 EKG-12 Lead Stat RT Consult Eval and Treat Now 12/21/23 11:17 Arterial Blood Gas Stat 12/21/23 11:30 Ammonia (NH3) Stat Covid-19 + FLU A/B + RSV - PCR Stat 12/21/23 11:46 Ictotest Urine Stat Urinalysis and Microscopic Stat Urine Culture Stat Urine Drug Screen, Rapid Stat 12/21/23 12:40 Blood Culture Stat 12/21/23 13:34 CT angio head and neck Stat 12/21/23 13:36 XR chest 1V Stat 12/21/23 14:34 XR chest 1V Stat 12/21/23 14:59 ABG [Arterial Blood Gas] Stat 12/21/23 15:09 ABG [Arterial Blood Gas] Stat Sodium Chloride (Normal Saline 0.9%) 1,000 mls @ 125 mls/hr IV CONT NANY Last Admin: 12/21/23 11:25 Dose: 125 mls/hr Documented By: SPF Discontinued Medications Aspirin (Aspirin 300 Mg Supp) 300 mg ID NOW ONE Stop: 12/21/23 15:40 Last Admin: 12/21/23 15:50 Dose: 300 mg Documented By: SPF Ceftriaxone Sodium 1,000 mg/ (Sodium Chloride) 100 mls @ 200 mls/hr IV NOW ONE Stop: 12/21/23 11:34 Last Infusion: 12/21/23 13:15 Dose: Infused Documented By: Admin: 12/21/23 12:39 Dose: 200 mls/hr Documented By: SPF Vancomycin HCl (Vancomycin) 1,000 mg in 200 mls @ 200 mls/hr IV NOW ONE Stop: 12/21/23 12:32 Last Infusion: 12/21/23 14:23 Dose: Infused Documented By: Admin: 12/21/23 13:17 Dose: 200 mls/hr Documented By: KATELYNN Pantoprazole Sodium (Pantoprazole 40 Mg Vial) 40 mg IV NOW ONE Stop: 12/21/23 11:09 Last Admin: 12/21/23 11:25 Dose: 40 mg Documented By: KATELYNN Vital Signs Vital signs: Vital Signs - 8 hr 12/21/23 10:55 12/21/23 11:10 12/21/23 11:25 Temperature 95.4 F L Pulse Rate 76 74 Respiratory Rate 18 18 Blood Pressure 90/62 109/60 Pulse Oximetry 98 97 Oxygen Delivery Method Mechanical Ventilation Ambu Bag Mechanical Ventilation 12/21/23 11:25 12/21/23 11:26 12/21/23 11:29 Temperature 95.5 F L 95.5 F L Pulse Rate 62 62 Respiratory Rate 20 20 Blood Pressure 109/60 Pulse Oximetry 96 95 Oxygen Delivery Method Mechanical Ventilation 12/21/23 11:29 12/21/23 11:30 12/21/23 11:30 Temperature 95.5 F L Pulse Rate 60 Respiratory Rate 20 Blood Pressure 108/57 L 103/56 L Pulse Oximetry 93 Oxygen Delivery Method 12/21/23 11:35 12/21/23 11:35 12/21/23 11:40 Temperature 95.5 F L Pulse Rate 59 L Respiratory Rate 20 Blood Pressure 105/56 L 117/77 Pulse Oximetry 91 Oxygen Delivery Method 12/21/23 11:40 12/21/23 11:48 12/21/23 11:48 Temperature 95.4 F L 95.4 F L Pulse Rate 60 58 L Respiratory Rate 23 20 Blood Pressure 120/63 Pulse Oximetry 96 97 Oxygen Delivery Method Mechanical Ventilation Mechanical Ventilation 12/21/23 11:50 12/21/23 11:50 12/21/23 11:55 Temperature 95.4 F L 95.4 F L Pulse Rate 56 L 56 L Respiratory Rate 20 20 Blood Pressure 123/66 Pulse Oximetry 96 94 Oxygen Delivery Method 12/21/23 11:55 12/21/23 12:00 12/21/23 12:00 Temperature 95.4 F L Pulse Rate 57 L Respiratory Rate Blood Pressure 121/63 120/69 Pulse Oximetry Oxygen Delivery Method 12/21/23 12:03 12/21/23 12:03 12/21/23 12:05 Temperature 95.4 F L Pulse Rate 55 L Respiratory Rate 21 Blood Pressure 125/71 141/71 H Pulse Oximetry Oxygen Delivery Method 12/21/23 12:05 12/21/23 12:10 12/21/23 12:10 Temperature 95.4 F L 95.4 F L Pulse Rate 62 58 L Respiratory Rate 21 20 Blood Pressure 127/66 Pulse Oximetry 97 97 Oxygen Delivery Method Mechanical Ventilation 12/21/23 12:15 12/21/23 12:15 12/21/23 12:20 Temperature 95.5 F L Pulse Rate 56 L Respiratory Rate 21 Blood Pressure 125/64 114/61 Pulse Oximetry 98 Oxygen Delivery Method Mechanical Ventilation 12/21/23 12:20 12/21/23 12:25 12/21/23 12:25 Temperature 95.5 F L 95.7 F L Pulse Rate 55 L 56 L Respiratory Rate 20 20 Blood Pressure 111/60 Pulse Oximetry 97 97 Oxygen Delivery Method Mechanical Ventilation 12/21/23 12:30 12/21/23 12:30 12/21/23 12:35 Temperature 95.9 F L Pulse Rate 55 L Respiratory Rate 20 Blood Pressure 112/60 117/64 Pulse Oximetry 97 Oxygen Delivery Method Mechanical Ventilation 12/21/23 12:35 12/21/23 12:40 12/21/23 12:40 Temperature 95.9 F L 96.3 F L Pulse Rate 56 L 56 L Respiratory Rate 20 20 Blood Pressure 127/67 Pulse Oximetry 97 98 Oxygen Delivery Method Mechanical Ventilation 12/21/23 12:45 12/21/23 12:45 12/21/23 12:50 Temperature 96.4 F L Pulse Rate 59 L Respiratory Rate 20 Blood Pressure 130/57 L 120/62 Pulse Oximetry 98 Oxygen Delivery Method Mechanical Ventilation 12/21/23 12:50 12/21/23 12:55 12/21/23 12:55 Temperature 96.6 F L 97.0 F L Pulse Rate 59 L 58 L Respiratory Rate 20 20 Blood Pressure 110/55 L Pulse Oximetry 97 98 Oxygen Delivery Method Mechanical Ventilation 12/21/23 13:00 12/21/23 13:00 12/21/23 13:05 Temperature 97.0 F L Pulse Rate 58 L Respiratory Rate 20 Blood Pressure 113/59 L 112/58 L Pulse Oximetry 97 Oxygen Delivery Method Mechanical Ventilation 12/21/23 13:05 12/21/23 13:10 12/21/23 13:10 Temperature 97.3 F L 97.5 F L Pulse Rate 58 L 58 L Respiratory Rate 20 20 Blood Pressure 105/58 L Pulse Oximetry 98 97 Oxygen Delivery Method 12/21/23 13:15 12/21/23 13:15 12/21/23 13:20 Temperature 97.7 F Pulse Rate 61 Respiratory Rate 20 Blood Pressure 104/60 117/59 L Pulse Oximetry 97 Oxygen Delivery Method 12/21/23 13:20 12/21/23 13:24 12/21/23 13:25 Temperature 97.7 F 97.9 F Pulse Rate 58 L 58 L Respiratory Rate 20 20 Blood Pressure 110/57 L Pulse Oximetry 98 98 Oxygen Delivery Method Mechanical Ventilation 12/21/23 13:25 12/21/23 13:30 12/21/23 13:30 Temperature 97.9 F 98.1 F Pulse Rate 58 L 59 L Respiratory Rate 20 20 Blood Pressure 114/58 L Pulse Oximetry 98 98 Oxygen Delivery Method Mechanical Ventilation 12/21/23 13:34 12/21/23 13:35 12/21/23 13:35 Temperature 98.1 F 98.2 F Pulse Rate 59 L 59 L Respiratory Rate 20 20 Blood Pressure 108/59 L Pulse Oximetry 98 99 Oxygen Delivery Method Mechanical Ventilation 12/21/23 13:40 12/21/23 13:40 12/21/23 13:45 Temperature 98.2 F Pulse Rate 62 Respiratory Rate 20 Blood Pressure 117/57 L 119/57 L Pulse Oximetry 99 Oxygen Delivery Method 12/21/23 13:45 12/21/23 13:50 12/21/23 13:50 Temperature 98.4 F 98.6 F Pulse Rate 60 63 Respiratory Rate 20 20 Blood Pressure 115/57 L Pulse Oximetry 99 99 Oxygen Delivery Method 12/21/23 13:55 12/21/23 13:55 12/21/23 14:00 Temperature 98.8 F Pulse Rate 60 Respiratory Rate 20 Blood Pressure 124/60 145/71 H Pulse Oximetry 99 Oxygen Delivery Method 12/21/23 14:00 12/21/23 14:05 12/21/23 14:05 Temperature 98.8 F 99.0 F Pulse Rate 62 60 Respiratory Rate 21 20 Blood Pressure 126/72 Pulse Oximetry 100 99 Oxygen Delivery Method Mechanical Ventilation Mechanical Ventilation 12/21/23 14:10 12/21/23 14:10 12/21/23 14:15 Temperature 99.1 F Pulse Rate 61 Respiratory Rate 20 Blood Pressure 129/60 127/61 Pulse Oximetry 99 Oxygen Delivery Method 12/21/23 14:15 12/21/23 14:20 12/21/23 14:20 Temperature 99.3 F 99.3 F Pulse Rate 63 66 Respiratory Rate 20 20 Blood Pressure 130/60 Pulse Oximetry 99 Oxygen Delivery Method 12/21/23 14:25 12/21/23 14:25 12/21/23 14:30 Temperature 99.3 F Pulse Rate 64 Respiratory Rate 20 Blood Pressure 142/63 H 136/74 Pulse Oximetry 99 Oxygen Delivery Method 12/21/23 14:30 12/21/23 14:35 12/21/23 14:35 Temperature 99.5 F 99.5 F Pulse Rate 67 65 Respiratory Rate 20 20 Blood Pressure 135/60 Pulse Oximetry 100 100 Oxygen Delivery Method Mechanical Ventilation 12/21/23 14:40 12/21/23 14:40 12/21/23 14:45 Temperature 99.5 F Pulse Rate 63 Respiratory Rate 20 Blood Pressure 132/60 137/63 Pulse Oximetry 100 Oxygen Delivery Method 12/21/23 14:45 12/21/23 14:50 12/21/23 14:50 Temperature 99.5 F 99.5 F Pulse Rate 67 64 Respiratory Rate 20 20 Blood Pressure 139/63 Pulse Oximetry 100 99 Oxygen Delivery Method 12/21/23 14:55 12/21/23 14:55 12/21/23 15:00 Temperature 99.5 F Pulse Rate 68 Respiratory Rate 20 Blood Pressure 137/64 143/65 H Pulse Oximetry 99 Oxygen Delivery Method Mechanical Ventilation 12/21/23 15:00 12/21/23 15:07 12/21/23 15:15 Temperature 99.5 F Pulse Rate 61 Respiratory Rate 20 Blood Pressure 140/63 Pulse Oximetry 99 98 Oxygen Delivery Method Mechanical Ventilation 12/21/23 15:15 12/21/23 15:30 12/21/23 15:30 Temperature 99.7 F H 99.7 F H Pulse Rate 63 60 Respiratory Rate 20 20 Blood Pressure 124/57 L Pulse Oximetry 98 98 Oxygen Delivery Method Mechanical Ventilation Mechanical Ventilation 12/21/23 15:45 12/21/23 15:45 12/21/23 16:00 Temperature 99.7 F H Pulse Rate 58 L Respiratory Rate 20 Blood Pressure 131/62 146/69 H Pulse Oximetry 98 Oxygen Delivery Method Mechanical Ventilation 12/21/23 16:00 12/21/23 16:15 12/21/23 16:15 Temperature 99.7 F H 99.5 F Pulse Rate 75 63 Respiratory Rate 29 H 20 Blood Pressure 142/64 H Pulse Oximetry 98 98 Oxygen Delivery Method Mechanical Ventilation Mechanical Ventilation 12/21/23 16:30 12/21/23 16:30 12/21/23 16:45 Temperature 99.3 F Pulse Rate 61 Respiratory Rate 20 Blood Pressure 133/61 144/63 H Pulse Oximetry 99 Oxygen Delivery Method Mechanical Ventilation 12/21/23 16:45 12/21/23 17:00 12/21/23 17:00 Temperature 99.3 F 99.1 F Pulse Rate 60 58 L Respiratory Rate 20 20 Blood Pressure 160/72 H Pulse Oximetry 99 99 Oxygen Delivery Method 12/21/23 17:15 12/21/23 17:15 12/21/23 17:30 Temperature 99.1 F Pulse Rate 59 L Respiratory Rate 20 Blood Pressure 159/69 H 144/67 H Pulse Oximetry 98 Oxygen Delivery Method Mechanical Ventilation 12/21/23 17:30 Temperature 99.1 F Pulse Rate 60 Respiratory Rate 20 Blood Pressure Pulse Oximetry 99 Oxygen Delivery Method Mechanical Ventilation Medical Decision Making Medical Records Medical records reviewed: Yes I reviewed the patient's medical records. Lab Data Lab results reviewed: Yes I reviewed the patient's lab results. 12/21/23 10:50 12/21/23 10:50 Labs: Lab Results 12/21/23 12/21/23 12/21/23 Range/Units 10:50 11:17 11:30 WBC 12.8 H (4.5-11.0) X10^3/uL RBC 3.86 L (4.5-5.9) X10^6/uL Hgb 11.7 L (13.5-17.5) g/dL Hct 35.7 L (41-53) % MCV 92.6 (80-100) fL MCH 30.4 (26-34) PG MCHC 32.8 (30-36) % RDW 13.3 (11.6-14.8) % Plt Count 103 L (150-400) X10^3/uL Neut % (Auto) 89.7 H (50-75) % Lymph % (Auto) 3.5 L (25-40) % Bates % (Auto) 6.7 (3-14) % Eos % (Auto) 0.0 L (2-4) % Baso % (Auto) 0.1 (0-2) % Neut # (Auto) 92744 H (8997-7435) /uL Lymph # (Auto) 500 L (6480-6341) /uL Bates # (Auto) 900 (0-900) /uL Eos # (Auto) 0 (0-450) /uL Baso # (Auto) 0 (0-100) /uL PT 13.2 H (9.4-12.5) SECONDS INR 1.2 (0.9-1.3) APTT 25 L (25.1-36.5) SECONDS ABG Sample Site Left radial ABG pH 7.30 L (7.35-7.45) ABG pCO2 41.7 (35-45) mmHg ABG pO2 78 L (80-100) mmHg ABG HCO3 21 L (23-27) mmol/L ABG Total CO2 22 L (23-27) mmol/L ABG O2 Saturation 94 L (95-100) % ABG Base Excess -6.0 L (-2-3) mmol/L FiO2 60 Sodium 141 (137-145) mmol/L Potassium 4.7 (3.4-5.1) mmol/L Chloride 109 H (98-107) mmol/L Carbon Dioxide 22 (22-32) mmol/L BUN 62 H (9-20) mg/dL Creatinine 1.01 (0.66-1.25) mg/dL Estimated GFR > 60 (>60) mL/min BUN/Creatinine Ratio 61.4 H (6-22) Glucose 122 H (80-110) mg/dL Lactate 1.7 (0.7-2.1) mmol/L Calcium 8.1 L (8.4-10.2) mg/dL Magnesium 2.5 H (1.6-2.3) mg/dL Total Bilirubin 0.9 (0.2-1.3) mg/dL AST 257 H (17-59) IU/L ALT 86 H (<50) IU/L Alkaline Phosphatase 189 H (38-126) U/L Ammonia 12 (9-30) umol/L Total Creatine Kinase 8139 H (55-170) U/L Troponin I 3.280 H* (0.01-0.034) ng/mL Total Protein 6.8 (6.3-8.2) g/dL Albumin 3.6 (3.5-5.0) g/dL Globulin 3.2 (1.7-4.1) g/dL Albumin/Globulin Ratio 1.1 (1.0-2.8) Lipase 78 (23-300) U/L Procalcitonin 0.21 (<0.5) ng/mL TSH 1.15 (0.47-4.68) uIU/mL Urine Color Urine Appearance Urine pH (4.5-8.0) Ur Specific [place] (1.000-1.035) Urine Protein (Negative) Urine Glucose (UA) (Negative) g/dL Urine Ketones (NEGATIVE) Urine Occult Blood (Negative) Urine Nitrate (Negative) Urine Bilirubin (NEGATIVE) Ur Bilirubin Confirm (Negative) Urine Urobilinogen (0.2) E.U./dL Ur Leukocyte Esterase (NEGATIVE) Urine RBC (0-5/HPF) Urine WBC (0-5/HPF) Ur Squamous Epith Cells (0-5/HPF) Urine Bacteria (None) Granular Casts (None) Ur Culture Indicated? Vol Urine Centrifuged Salicylates < 1.0 (<20) mg/dL U Opiates 300ng/mL cut (Negative) Ur Oxycodone Screen (Negative) Urine Methadone Screen (Negative) Acetaminophen < 10 (10-30) ug/mL Ur Barbiturates Screen (Negative) U Tricyclic Antidepress (Negative) Ur Phencyclidine Scrn (Negative) Ur Amphetamines Screen (Negative) U Methamphetamines Scrn (Negative) Ur MDMA Scrn (Ecstasy) (Negative) U Benzodiazepines Scrn (Negative) Urine Cocaine Screen (Negative) U Marijuana (THC) Screen (Negative) Urine Specific [place] (Normal) Ethyl Alcohol < 10 ( - 10) mg/dL Ur Creatinine (Normal) SARS-CoV-2 (PCR) Negative (Negative) Influenza A (RT-PCR) Flu a negative (NEGATIVE) Influenza B (RT-PCR) Flu b negative (NEGATIVE) RSV (PCR) Negative (Negative) 12/21/23 12/21/23 12/21/23 Range/Units 11:46 11:46 14:59 WBC (4.5-11.0) X10^3/uL RBC (4.5-5.9) X10^6/uL Hgb (13.5-17.5) g/dL Hct (41-53) % MCV (80-100) fL MCH (26-34) PG MCHC (30-36) % RDW (11.6-14.8) % Plt Count (150-400) X10^3/uL Neut % (Auto) (50-75) % Lymph % (Auto) (25-40) % Bates % (Auto) (3-14) % Eos % (Auto) (2-4) % Baso % (Auto) (0-2) % Neut # (Auto) (2510-0180) /uL Lymph # (Auto) (4718-5729) /uL [place] # (Auto) (0-900) /uL Eos # (Auto) (0-450) /uL Baso # (Auto) (0-100) /uL PT (9.4-12.5) SECONDS INR (0.9-1.3) APTT (25.1-36.5) SECONDS ABG Sample Site Left radial ABG pH 7.43 (7.35-7.45) ABG pCO2 24.1 L* (35-45) mmHg ABG pO2 101 H (80-100) mmHg ABG HCO3 16 L (23-27) mmol/L ABG Total CO2 17 L (23-27) mmol/L ABG O2 Saturation 98 (95-100) % ABG Base Excess -8.0 L (-2-3) mmol/L FiO2 50 Sodium (137-145) mmol/L Potassium (3.4-5.1) mmol/L Chloride (98-107) mmol/L Carbon Dioxide (22-32) mmol/L BUN (9-20) mg/dL Creatinine (0.66-1.25) mg/dL Estimated GFR (>60) mL/min BUN/Creatinine Ratio (6-22) Glucose (80-110) mg/dL Lactate (0.7-2.1) mmol/L Calcium (8.4-10.2) mg/dL Magnesium (1.6-2.3) mg/dL Total Bilirubin (0.2-1.3) mg/dL AST (17-59) IU/L ALT (<50) IU/L Alkaline Phosphatase (38-126) U/L Ammonia (9-30) umol/L Total Creatine Kinase (55-170) U/L Troponin I (0.01-0.034) ng/mL Total Protein (6.3-8.2) g/dL Albumin (3.5-5.0) g/dL Globulin (1.7-4.1) g/dL Albumin/Globulin Ratio (1.0-2.8) Lipase (23-300) U/L Procalcitonin (<0.5) ng/mL TSH (0.47-4.68) uIU/mL Urine Color Yellow Urine Appearance Clear Urine pH 5.0 Normal (4.5-8.0) Ur Specific [place] >=1.030 H (1.000-1.035) Urine Protein 2+ H (Negative) Urine Glucose (UA) Negative (Negative) g/dL Urine Ketones 1+ H (NEGATIVE) Urine Occult Blood 3+ H (Negative) Urine Nitrate Negative (Negative) Urine Bilirubin 1+ H (NEGATIVE) Ur Bilirubin Confirm (Negative) Urine Urobilinogen 0.2 (0.2) E.U./dL Ur Leukocyte Esterase Negative (NEGATIVE) Urine RBC 10-30/hpf H (0-5/HPF) Urine WBC 1-5/hpf (0-5/HPF) Ur Squamous Epith Cells None seen (0-5/HPF) Urine Bacteria Few (2-10) H (None) Granular Casts 5-10/lpf (None) Ur Culture Indicated? Specimen cultured Vol Urine Centrifuged 10ml (spun) Salicylates (<20) mg/dL U Opiates 300ng/mL cut Negative (Negative) Ur Oxycodone Screen Negative (Negative) Urine Methadone Screen Negative (Negative) Acetaminophen (10-30) ug/mL Ur Barbiturates Screen Negative (Negative) U Tricyclic Antidepress Negative (Negative) Ur Phencyclidine Scrn Negative (Negative) Ur Amphetamines Screen Negative (Negative) U Methamphetamines Scrn Negative (Negative) Ur MDMA Scrn (Ecstasy) Negative (Negative) U Benzodiazepines Scrn Negative (Negative) Urine Cocaine Screen Negative (Negative) U Marijuana (THC) Screen Negative (Negative) Urine Specific [place] Normal (Normal) Ethyl Alcohol ( - 10) mg/dL Ur Creatinine Normal (Normal) SARS-CoV-2 (PCR) (Negative) Influenza A (RT-PCR) (NEGATIVE) Influenza B (RT-PCR) (NEGATIVE) RSV (PCR) (Negative) Imaging Data Chest x-ray: Radiologist's Impression: PROCEDURE: XR CHEST 1V INDICATIONS: post intubation TECHNIQUE: One view of the chest was acquired. COMPARISON: [facility], , XR CHEST 1V, 10/28/2023, 12:49. FINDINGS: Surgical changes and devices: An endotracheal tube is seen, with the tip 6.5 cm above the ag. Right shoulder postoperative change is partially seen. Lungs and pleura: On this supine examination, no large pneumothorax or large pleural effusions are seen. No focal areas of lung consolidation are seen. Mediastinum: The cardiac contours are within normal limits. The aorta demonstrates calcification and tortuosity. Bones and chest wall: No suspicious bony lesions. Age-appropriate bony degenerative changes are seen. Mild dextroconvex scoliotic curvature is seen. Overlying soft tissues appear unremarkable. IMPRESSION: The tip of the endotracheal tube is seen 6-7 cm [address] the ag. CT scan - head: Radiologist's Impression: PROCEDURE: CT HEAD/BRAIN WO CON INDICATIONS: AMS TECHNIQUE: Noncontrast 4.5 mm thick angled axial sections acquired from the foramen magnum to the vertex, with coronal and sagittal reformats. For radiation dose reduction, the following was used: automated exposure control, adjustment of mA and/or kV according to patient size. COMPARISON: [facility], CT, CT STROKE, 10/28/2023, 13:03. [facility], MR, MR HEAD/BRAIN WO CON, 10/28/2023, 17:46. [facility], CR, XR CHEST 1V, 12/21/2023, 11:12. [facility], CT, CT HEAD/BRAIN WO CON, 10/21/2023, 8:36. FINDINGS: Image quality: This examination is limited by involuntary motion artifact. Mild streak artifact can be seen through the skull base. CSF spaces: Basal cisterns are patent. No extra-axial fluid collections. The ventricles are symmetric in size and shape. Brain: Numerous areas of low density can be seen involving both cerebral hemispheres, which are new compared to the 10/28/2023 CT. 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 No intracranial bleeds or masses. There is cerebral volume loss for age, with resultant ventricular and sulcal prominence. There are periventricular and deep white matter chronic small vessel ischemic changes. There is intracranial internal carotid artery atherosclerosis. Skull and face: Calvarium and visualized facial bones appear intact, without suspicious lesions. Sinuses: Visualized sinuses and mastoids are clear. This patient is intubated. IMPRESSION: Extensive areas of low density infarction can be seen throughout both cerebral hemispheres, which are attributed to multiple areas of significant subacute infarction. No findings of hemorrhagic transformation are seen. 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 Repeat chest x-ray: Radiologist's Impression: PROCEDURE: XR CHEST 1V INDICATIONS: diminished left lung auscultation TECHNIQUE: One view of the chest was acquired. COMPARISON: [facility], CR, XR CHEST 1V, 10/28/2023, 12:49. [facility], CR, XR CHEST 1V, 12/21/2023, 11:12. FINDINGS: Surgical changes and devices: An endotracheal tube is seen, with the tip 5 cm above the ag. Right shoulder postoperative change is seen. Lungs and pleura: On this supine examination, no large pneumothorax or large pleural effusions are seen. No focal areas of lung consolidation are seen. The left hemidiaphragm is mildly elevated, although this is similar to priors. Mediastinum: Mediastinal contours appear normal. Heart size is normal. Bones and chest wall: No suspicious bony lesions. Overlying soft tissues appear unremarkable. IMPRESSION: No significant abnormality of the left lung can be seen. There is mild elevation of the left noreen diaphragm, stable. The tip of the endotracheal tube is seen 5 cm above the ag. Repeat chest x-ray 2: Radiologist's Impression: PROCEDURE: XR CHEST 1V INDICATIONS: Confirm OG placement TECHNIQUE: One view of the chest was acquired. COMPARISON: [facility], CT, CT ANGIO HEAD AND NECK, 12/21/2023, 13:29. [facility], CR, XR CHEST 1V, 12/21/2023, 11:12. [facility], CR, XR CHEST 1V, 12/21/2023, 13:38. FINDINGS: Surgical changes and devices: A gastric tube has been placed, with the tip overlying the proximal stomach. The side hole is seen below the level of diaphragm. An endotracheal tube is seen, with the tip 5 cm above the ag. Lungs and pleura: Lungs are clear. No pleural effusions or pneumothorax. Mild elevation of the left hemidiaphragm can be seen. Mediastinum: Mediastinal contours appear normal. Heart size is normal. Bones and chest wall: No suspicious bony lesions. Overlying soft tissues appear unremarkable. IMPRESSION: The tip of the gastric tube can be seen overlying the proximal stomach. ECG Data Attestation: I personally reviewed and interpreted this ECG as follows: Interpretation: Sinus rhythm Ventricular rate is 61 Normal QRS Normal QTC No ST T wave changes MDM Narrative Medical decision making narrative: Patient was found altered. According to all of the resources that we have to include EMS, neighbors, distant relatives and friends last known normal was on Friday which was greater than 24 hours ago and almost 48 hours ago. No specific times of trauma on arrival. He was intubated in the field however it was very quickly noticed that the reservoir for the endotracheal tube balloon was cut. Patient was reintubated without issue. No problems with hypoxia. Patient does have a leukocytosis. Antibiotics were administered. Cultures and labs obtained. Head CT concern for acute stroke however the patient did have a stroke 2 months ago however these do appear to be new. CTA also shows multiple vascular occlusions. Patient not a candidate for tPA. Not a candidate for code IR. Discussed the case with Dr. Kelly stroke Neurology at [facility]. I also discussed the case with Dr. perales millinery department manager at [facility]. Dr. Kelly accepts patient. Patient is stable for transport. Critical Care Time Critical Care Time Critical Care Time: Yes Total Critical Care Time: 45 Attestation: The high probability of a clinically significant, sudden or life threatening deterioration of the [respiratory, cardiovascular, neurologic] system(s) required my full and direct attention, intervention and personal management. The aggregate critical care time was [45] minutes. This time is in addition to time spent performing reported procedures but includes the following: [x] Data Review and interpretation [x] Patient assessment and monitoring of vital signs [x] Documentation [x] Medication orders and management Discharge Plan Departure Patient Disposition: [facility] Clinical Impression: Acute CVA (cerebrovascular accident), Rhabdomyolysis, Elevated troponin, Altered mental status Prescriptions: No Action mecobalamin (vitamin B12) 5,000 mcg Tablet,Chewable 5,000 mcg PO WEEKLY aspirin 81 mg Tablet,Delayed Release (Dr/Ec) 81 mg PO DAILY Qty: 30 0RF Referrals: Jamison Robbins MD [Primary Care Provider] - Stand Alone Forms: Naloxone Standing Order MARGARITO
[2023-12-21 11:16] LABS: Add Manual Diff / Slide Review NO; Basophils Absolute Auto 0 /uL (0-100); Basophils Percent Auto 0.1 % (0-2); Eosinophils Absolute Auto 0 /uL (0-450); Hematocrit 35.7 % (41-53); Hemoglobin 11.7 g/dL (13.5-17.5); Lymphocytes Absolute Auto 500 /uL (1100-4500); Lymphocytes Percent Auto 3.5 % (25-40); Mean Corpuscular HGB Conc 32.8 % (30-36); Mean Corpuscular Hemoglobin 30.4 PG (26-34); Mean Corpuscular Volume 92.6 fL (80-100); Monocytes Absolute Auto 900 /uL (0-900); Monocytes Percent Auto 6.7 % (3-14); Neutrophils Absolute Auto 11500 /uL (1500-7000); Neutrophils Percent Auto 89.7 % (50-75); Platelet Count 103 X10^3/uL (150-400); Red Blood Cell Count 3.86 X10^6/uL (4.5-5.9); Red Cell Distribution Width 13.3 % (11.6-14.8); White Blood Cell Count 12.8 X10^3/uL (4.5-11.0)
[2023-12-21 11:18] LABS: INR 1.2 (0.9-1.3); Prothrombin Time 13.2 SECONDS (9.4-12.5)
[2023-12-21 11:20] LABS: PTT Partial Thromboplastin Tim 25 SECONDS (25.1-36.5)
[2023-12-21] MEDS: SODIUM CHLORIDE 0.9% 1,000 ML 125 ML IV (11:25)
[2023-12-21] MEDS: PANTOPRAZOLE 40 MG VIAL IV (11:25)
[2023-12-21 11:26] LABS: Acetaminophen < 10 ug/mL (10-30); Alanine Aminotransferase 86 IU/L (<50); Albumin 3.6 g/dL (3.5-5.0); Albumin Globulin Ratio 1.1 (1.0-2.8); Alkaline Phosphatase 189 U/L (38-126); Aspartate Aminotransferase 257 IU/L (17-59); BUN Creatinine Ratio 61.4 (6-22); Bilirubin Total 0.9 mg/dL (0.2-1.3); Blood Urea Nitrogen 62 mg/dL (9-20); Calcium 8.1 mg/dL (8.4-10.2); Carbon Dioxide 22 mmol/L (22-32); Chloride 109 mmol/L (98-107); Estimated Glomerular Filt Rate > 60 mL/min (>60); Globulin 3.2 g/dL (1.7-4.1); Glucose 122 mg/dL (80-110); Potassium 4.7 mmol/L (3.4-5.1); Sodium 141 mmol/L (137-145); Total Protein 6.8 g/dL (6.3-8.2)
[2023-12-21 11:27] LABS: Ethanol (ETOH) < 10 mg/dL; Lactate (Lactic Acid) 1.7 mmol/L (0.7-2.1); Lipase 78 U/L (23-300); Magnesium 2.5 mg/dL (1.6-2.3); Salicylate < 1.0 mg/dL (<20)
[2023-12-21 11:40] LABS: Allen Test for ABG Passed? Yes, Passed; Blood Gas Collection Site Left Radial; Fractionated Inspired Oxygen 60; HCO3 ABG 21 mmol/L (23-27); Oxygen Saturation ABG 94 % (95-100); PCO2 ABG 41.7 mmHg (35-45); PO2 ABG 78 mmHg (80-100); TCO2 ABG 22 mmol/L (23-27)
[2023-12-21 11:43] LABS: Procalcitonin 0.21 ng/mL (<0.5)
[2023-12-21 11:50] LABS: HEMOLYSIS 63 (0-50)
[2023-12-21 11:53] LABS: Appearance Urine UA CLEAR; Bilirubin Urine UA 1+ (NEGATIVE); Color Urine UA YELLOW; Glucose Urine UA NEGATIVE (Negative); Ketones Urine UA 1+ (NEGATIVE); Leukocyte Esterase Urine UA NEGATIVE (NEGATIVE); Nitrite Urine UA NEGATIVE (Negative); Occult Blood Urine UA 3+ (Negative); Protein Urine UA 2+ (Negative); Specific Gravity Urine UA >=1.030 (1.000-1.035); Urobilinogen Urine UA 0.2 E.U./dL (0.2)
[2023-12-21 11:55] LABS: Ammonia (NH3) 12 umol/L (9-30)
[2023-12-21 11:57] LABS: Thyroid Stimulating Hormone 1.15 uIU/mL (0.47-4.68)
[2023-12-21 12:00] LABS: UR Morphine/Opiate cutoff 300 Negative (Negative); Ur Creatinine Normal (Normal); Ur Specific Gravity Normal (Normal); Urine Amphetamines Negative (Negative); Urine Barbiturates Negative (Negative); Urine Benzodiazepines Negative (Negative); Urine Cocaine Negative (Negative); Urine MDMA Negative (Negative); Urine Methadone Negative (Negative); Urine Methamphetamines Negative (Negative); Urine Oxycodone Negative (Negative); Urine Phencyclidine Negative (Negative); Urine Tetrahydrocannabinol Negative (Negative); Urine Tricyclic Antidepressant Negative (Negative); Urine pH Normal (Normal)
--- NOTE | 2023-12-21 12:10 | PC.NURSE ---
PT arrived with soiled linens with BM and urine. Linens changed, gaviota care administered, warm blankets with radiant warmer and caron hugger applied. Pt unresponsive, no family at bedside. Unknown time down.
[2023-12-21 12:15] LABS: Bacteria Urine Few (2-10); Granular Casts Urine 5-10/LPF; RBC Urine 10-30/HPF (0-5/HPF); Squamous Epithelial Cell Urine None Seen (0-5/HPF); Urine Volume 10mL (spun); WBC Urine 1-5/HPF (0-5/HPF)
[2023-12-21 12:16] LABS: Culture Indicated Urine Specimen Cultured
[2023-12-21] MEDS: cefTRIAXone 1,000 MG in SODIUM CHLORIDE 0.9% 100 ML 200 MG IV (12:39)
[2023-12-21 12:40] LABS: Influenza A - CEPHEID Flu A NEGATIVE (NEGATIVE); Influenza B - CEPHEID Flu B NEGATIVE (NEGATIVE); Respiratory Syncytial Virus Negative (Negative)
--- NOTE | 2023-12-21 12:40 | PC.NURSE ---
Pt's nephew Candido Tabor, cell # [phone], at bedside with his spouse. Mr. Tabor reports not seeing patient since Mr. Robles aunt 20 years ago. He states there is a family member in [place] that he is attempting to keep updated. Mr. Tabor reports he will be close by in town at his residence 2 minutes away.
[2023-12-21 12:41] LABS: COVID-19 CEPHEID 4-PLEX PCR Negative (Negative)
[2023-12-21 12:50] LABS: Creatine Kinase 8139 U/L (55-170)
--- NOTE | 2023-12-21 13:01 | PC.NURSE ---
Addendum entered by Phan Mills R.N. 12/21/23 15:31: All noted wounds are bleeding controlled. Original Note: Pt found down for unknown ammount of time with multiple pressure wounds including: LEFT lateral hip non blanchable, LEFT lateral knee non blanchable, RIGHT medial knee non blanchable, LEFT ear ecchymosis, LEFT shoulder ecchymosis, RIGHT great toe (multiple wounds), LEFT 5th toe wound.
[2023-12-21] MEDS: VANCOMYCIN 1,000 MG/200 ML PIGGYBACK 200 MG IV (13:17)
--- NOTE | 2023-12-21 13:29 | PC.NURSE ---
Manuel Murray called in to give his number as a point of contact for pt. He reports he is a pseudo-son and have had contact with him the past 3 weeks. No information provided to family.
--- NOTE | 2023-12-21 13:34 | DI.CT.S_ITS ---
PROCEDURE: CT ANGIO HEAD AND NECK INDICATIONS: acute cva TECHNIQUE: After the administration of intravenous contrast, 1 mm thick sections acquired from the aortic arch through the [place] [facility] [place]. 3-dimensional cfrnazh-ydyuyizhc-nmooirvuwm (MIP) and/or volume rendering reformats were acquired of the central intracranial vasculature and neck separately. For radiation dose reduction, the following was used: automated exposure control, adjustment of mA and/or kV according to patient size. COMPARISON: [facility], CT, CT ANGIO HEAD AND NECK, 10/21/2023, 12:03. [facility], CT, CT STROKE, 10/28/2023, 13:03. [facility], MR, MR HEAD/BRAIN WO CON, 10/28/2023, 17:46. [facility], CR, XR CHEST 1V, 12/21/2023, 14:35. [facility], CR, XR CHEST 1V, 12/21/2023, 13:38. [facility], CR, XR CHEST 1V, 12/21/2023, 11:12. [facility], CT, CT HEAD/BRAIN WO CON, 12/21/2023, 10:18. [facility], CT, CT ANGIO HEAD AND NECK, 10/28/2023, 13:03. FINDINGS: Image quality: Diagnostic. BRAIN: CSF spaces: Ventricles are normal in size and shape. Basal cisterns are patent. No extra-axial fluid collections. Brain: No significant abnormality of the brain can be seen. Skull and face: Calvarium and facial bones appear intact, without suspicious lesions. Orbits appear normal. Sinuses: Sinuses and mastoids are clear. HEAD CT ANGIOGRAPHY: Anterior circulation: No flow seen within the RIGHT internal carotid artery. Normal flow seen within the left internal carotid artery. There is an occlusion seen within the LEFT proximal M1 segment, as on series 4 image 101. Almost no flow can be seen within the left middle cerebral artery territory. Normal appearing flow can be seen within the anterior cerebral arteries. The anterior communicating artery is seen. No aneurysms are seen. Posterior circulation: Visualized portions of the vertebral arteries demonstrate normal caliber, and join to form a normal appearing basilar artery. Almost no flow can be seen within the right posterior cerebral artery. Normal appearing flow can be seen within the left posterior cerebral artery No aneurysms are seen. NECK CT ANGIOGRAPHY: Carotid system: The great vessels demonstrate a conventional anatomy as they arise from the aortic arch. The origins of the common carotid arteries appear patent. The common carotid arteries demonstrate normal caliber and courses. Atherosclerotic calcification and irregularity can be seen involving the carotid bifurcations. There is complete occlusion of the right internal carotid artery seen 1 cm beyond its origin. No hemodynamically significant stenosis can be seen on the left. The left internal carotid artery demonstrates normal flow. Posterior circulation: The origins of the vertebral arteries both appear widely patent. The more superior extracranial portions of both vertebral arteries also demonstrate normal courses and calibers. The left vertebral artery is dominant to the right. Soft tissues: Visualized neck soft tissues demonstrate no suspicious abnormalities. Mild infiltrates can be seen within the visualized left upper lung Bones: No suspicious bony lesions. Visualized cervical spine appears normally aligned. Age-appropriate bony degenerative changes are seen. An endotracheal tube and an orogastric tube can be seen. 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 Almost no flow can be seen within the RIGHT posterior cerebral artery. Mild infiltrates are seen within the left upper lung. Note: Dr. York was not available to discuss this case at the time of this dictation. Findings relayed to Dr. York via ER staff, [place], at 3:02 p.m. Col[place] time on December 21, 2023. Dr. York will call back if there are any questions. Any quantitative measurements of stenosis were performed using NASCET criteria. Dictated by: Juan Carlos Lambert M.D. on 12/21/2023 at 13:56 Approved by: Juan Carlos Lambert M.D. on 12/21/2023 at 14:04
--- NOTE | 2023-12-21 13:36 | DI.RAD.S_ITS ---
PROCEDURE: XR CHEST 1V INDICATIONS: diminished left lung auscultation TECHNIQUE: One view of the chest was acquired. COMPARISON: [facility], CR, XR CHEST 1V, 10/28/2023, 12:49. [facility], CR, XR CHEST 1V, 12/21/2023, 11:12. FINDINGS: Surgical changes and devices: An endotracheal tube is seen, with the tip 5 cm above the ag. Right shoulder postoperative change is seen. Lungs and pleura: On this supine examination, no large pneumothorax or large pleural effusions are seen. No focal areas of lung consolidation are seen. The left hemidiaphragm is mildly elevated, although this is similar to priors. Mediastinum: Mediastinal contours appear normal. Heart size is normal. Bones and chest wall: No suspicious bony lesions. Overlying soft tissues appear unremarkable. IMPRESSION: No significant abnormality of the left lung can be seen. There is mild elevation of the left noreen diaphragm, stable. The tip of the endotracheal tube is seen 5 cm above the ag. Dictated by: Juan Carlos Lambert M.D. on 12/21/2023 at 13:18 Approved by: Juan Carlos Lambert M.D. on 12/21/2023 at 13:19
--- NOTE | 2023-12-21 14:06 | PC.NURSE ---
assumed care for lunch break relief. pt on all monitoring equipment. noticed no OG in place; verbal read back from Dr. York to place OG stat. placed 18fr OG w/o issue. pt has minimal purposeful movement. appears comfortable.
--- NOTE | 2023-12-21 14:34 | DI.RAD.S_ITS ---
PROCEDURE: XR CHEST 1V INDICATIONS: Confirm OG placement TECHNIQUE: One view of the chest was acquired. COMPARISON: [facility], CT, CT ANGIO HEAD AND NECK, 12/21/2023, 13:29. [facility], CR, XR CHEST 1V, 12/21/2023, 11:12. [facility], CR, XR CHEST 1V, 12/21/2023, 13:38. FINDINGS: Surgical changes and devices: A gastric tube has been placed, with the tip overlying the proximal stomach. The side hole is seen below the level of diaphragm. An endotracheal tube is seen, with the tip 5 cm above the ag. Lungs and pleura: Lungs are clear. No pleural effusions or pneumothorax. Mild elevation of the left hemidiaphragm can be seen. Mediastinum: Mediastinal contours appear normal. Heart size is normal. Bones and chest wall: No suspicious bony lesions. Overlying soft tissues appear unremarkable. IMPRESSION: The tip of the gastric tube can be seen overlying the proximal stomach. Dictated by: Juan Carlos Lambert M.D. on 12/21/2023 at 13:46 Approved by: Juan Carlos Lambert M.D. on 12/21/2023 at 13:49
--- NOTE | 2023-12-21 15:00 | PC.NURSE ---
Pt's friend Magdaleno at bedside to see patient. He states he was informed by email from another friend that pt was here. Magdaleno reports last seeing patient a couple days ago, he was working on his [email or web address] project. I clarified if Magdaleno last saw patient on friday, Magdaleno responds must have been.
[2023-12-21 15:12] LABS: pH ABG 7.43 (7.35-7.45)
[2023-12-21 15:13] LABS: Allen Test for ABG Passed? Yes, Passed; Blood Gas Collection Site Left Radial; Fractionated Inspired Oxygen 50; HCO3 ABG 16 mmol/L (23-27); Oxygen Saturation ABG 98 % (95-100); PCO2 ABG 24.1 mmHg (35-45); PO2 ABG 101 mmHg (80-100); TCO2 ABG 17 mmol/L (23-27)
[2023-12-21] MEDS: ASPIRIN 300 MG SUPP PR (15:50)
--- NOTE | 2023-12-21 16:00 | PC.NURSE ---
Pt linens were stripped of bed. VENTURA Barba and I administered a bed bath with warm, soapy water, patted dry, and new bed linens. Wounds were washed gently with warm soapy water, dried, and pink, allevyn gentle border dressings applied to left hip, left knee, right knee. Pt repositioned in bed with blankets supporting his legs/ankles. Pt appears comfortable with minimal purposeful movement.
[2023-12-21] MEDS: HYDROMORPHONE 0.5 MG INJ IV (18:05)
== END 2023-12-21 18:21 | disposition short-term general hospital (02) ==
PROVIDERS: Emergency Provider Emergency Medicine; PCP Family Medicine
DX: I63.9 Cerebral infarction, unspecified (principal); M62.82 Rhabdomyolysis; R79.89 Other specified abnormal findings of blood chemistry; R41.82 Altered mental status, unspecified; Z20.822 Contact with and (suspected) exposure to COVID-19
CPT/HCPCS: 0241U; 31500; 36415; 36600; 70450; 70496; 70498; 71045; 80053; 80305; 80320; 80329; 81001; 82140; 82550; 82805; 83605; 83690; 83735; 84145; 84443; 84484; 85025; 85610; 85730; 87040; 87086; 93005; 93010; 94799; 96365; 96367; 96375; 99285; 99291; C9113; G0480; J0696; J1170; Q9967